=== PATIENT | female | born 1965 | race Caucasian/White ===

== ENCOUNTER 2018-12-10 17:00 | Outpatient (RCR) | payer BC, SELFPAY | END 2019-01-07 15:52 | disposition home or self-care (01) | LOC: PT.CARL 17:00 | PROVIDERS: Visit Provider Nurse Practitioner Family | DX: M54.5 Low back pain (principal); M79.604 Pain in right leg | CPT/HCPCS: 97010; 97014; 97110; 97140; 97163; G0283 ==

== ENCOUNTER → 2021-01-25 08:23 | Outpatient (CLI) | payer BC, SELFPAY ==
--- NOTE | 2021-01-25 08:23 | CT_ITS ---
PROCEDURE: CT LUNG SCREENING CLINICAL INDICATION: lung cancer screening COMPARISON: CR CHEST PA & LAT from 11/16/2020 TECHNIQUE: The exam was performed on a GE Light Speed [address] scanner using 2.90 mGy CTDI. A low dose helical CT CHEST was performed on a multi-detector scanner. All CT scans at the facility use one or more dose reduction, viz: automated exposure control, ma/kV adjustment per patient size (including targeted exams where dose is matched to indication, i.e. head), or iterative reconstruction technique. The LDCT was performed in a facility that meets the criteria for the screening program. Data regarding this exam was submitted to ACR which is an approved registry. The order for this exam indicates that it came as a result of a lung cancer screening counseling shard decision-making visit that included all the elements required of such a visit including smoking cessation. The radiologist interpreting this exam meets the CMS criteria for the LDCT lung cancer screening program. The exam is reported using the Lung-RADS classification scale and reported to the ACR registry. NOTE: This study was performed for the specific purposes of lung cancer screening and is not an alternative to diagnostic chest CT. RADIATION DOSE: CTDI vol(CT dose Index-volume) = 2.90mG DLP (Dose Length Product) = 96.38 mGcm FINDINGS: Scattered mild emphysematous changes with some bibasilar scar versus atelectasis. Some biapical scarring noted. No discrete pulmonary nodules. Heart is not enlarged. No pericardial effusion or thickening. Few small calcified left hilar lymph nodes. Thoracic aorta is normal. Heart is not enlarged. No pericardial effusion or thickening. Airways are patent. Images of the upper abdomen show no discrete abnormality. Mild diffuse degenerative changes of upper and midthoracic spine are noted. No acute bony abnormality. OTHER FINDINGS: No other pertinent findings evident. IMPRESSION: Lung-RADS Category 2 Benign Appearance or Behavior Follow-up: Serial follow-up in 1 year. Scattered mild emphysematous changes with some bibasilar scar versus atelectasis. No discrete pulmonary nodules are noted. Dictated by: Ashvin Christian MD 01/25/2021 09:10 Ashvin Christian MD in [place] 01/25/2021 09:10
[2021-01-25 09:17] LABS: Basophils # 0.1 K/mm3 (0-0.2); Basophils % 1.1 % (0.1-2.0); Eosinophils # 0.1 K/mm3 (0.0-0.4); Eosinophils % 1.7 % (0.1-12.0); Hematocrit 42.8 % (37.0-47.0); Hemoglobin 14.8 g/dL (12.2-16.2); Lymphocytes # 2.2 K/mm3 (0.7-4.5); Lymphocytes % 31.6 % (10-50); Mean Corpuscular HGB Conc 34.4 g/dL (31.8-35.4); Mean Corpuscular Hemoglobin 30.7 pg (27.0-31.2); Mean Corpuscular Volume 89.1 fl (81-99); Mean Platelet Volume 7.6 fl (7.4-10.4); Monocytes # 0.4 K/mm3 (0.1-1.0); Monocytes % 6.1 % (1.7-9.3); Neutrophils # 4.2 K/mm3 (1.8-7.8); Neutrophils % 59.6 % (37.0-80.0); Platelet Count 284 K/mm3 (142-424); Red Blood Count 4.81 M/mm3 (4.20-5.40); Red Cell Distribution Width 13.3 % (11.5-17.5); White Blood Count 7.1 K/mm3 (4.8-10.8)
[2021-01-26 06:45] LABS: Alpha-1-Antitrypsin 141 mg/dL (101-187)
== END ==
PROVIDERS: PCP Nurse Practitioner; Visit Provider Internal Medicine Pulmonary Disease
DX: Z87.891 Personal history of nicotine dependence (principal); Z12.2 Encounter for screening for malignant neoplasm of respiratory organs; J44.9 Chronic obstructive pulmonary disease, unspecified
CPT/HCPCS: 36415; 71271; 82103; 85025

== ENCOUNTER → 2021-02-21 09:43 | Outpatient (CLI) | payer BC, SELFPAY | PROVIDERS: PCP Nurse Practitioner; Visit Provider Internal Medicine Pulmonary Disease | DX: R06.09 Other forms of dyspnea (principal) | CPT/HCPCS: 94060; 94726; 94729 ==

== ENCOUNTER → 2021-05-09 16:37 | Outpatient (CLI) | payer BC, SELFPAY | PROVIDERS: Visit Provider Urology | DX: N39.0 Urinary tract infection, site not specified (principal) | CPT/HCPCS: 87086; 87088; 87186 ==

== ENCOUNTER → 2021-05-16 12:49 | Outpatient (CLI) | payer BC, SELFPAY ==
--- NOTE | 2021-05-16 12:50 | FL_ITS ---
PROCEDURE: FL VOIDING CYSTOURETHROGRAM CLINICAL INDICATION: urinary incontinence COMPARISON: CT CT LUNG SCREENING from 01/25/2021 FINDINGS: Crab Steamer exam shows mild amount of retained colonic feces and bilateral tubal ligation clips. The lower pole of the right kidney appears prominent and may be better evaluated with CT. There are degenerative changes in the lower lumbar spine. Approximately 300 mL of Cystografin was instilled into the urinary of bladder via previously placed Rain catheter. The urinary bladder has an unremarkable appearance. No passive reflux was evident. Patient was unable to void on the table therefore voiding images were not able to be obtained. Postvoid exam show no evidence of renal or ureteral reflux. There is no significant postvoid residual urine. IMPRESSION: Negative voiding cystogram Possible lower pole right renal mass. CT kidneys without and with contrast may provide further evaluation. Dictated by: Kehinde Sawant MD 05/16/2021 16:30 Kehinde Sawant MD in [place] 05/16/2021 16:30
--- NOTE | 2021-05-16 12:50 | US_ITS ---
PROCEDURE: US KIDNEY CLINICAL INDICATION: COMPARISON: No exams were available for comparison FINDINGS: The right kidney is [id number]. No hydronephrosis, cortical thinning, or renal mass or perinephric fluid collection is evident. The left kidney is [id number]. No hydronephrosis, cortical thinning, or renal mass or perinephric fluid collection is evident. There is a small left renal cyst in the upper pole at 1 cm IMPRESSION: Small left upper pole renal cyst otherwise negative renal ultrasound Dictated by: Kehinde Sawant MD 05/16/2021 18:23 Kehinde Sawant MD in [place] 05/16/2021 18:23
== END ==
PROVIDERS: PCP Nurse Practitioner; Visit Provider Urology
DX: R32 Unspecified urinary incontinence (principal); N39.0 Urinary tract infection, site not specified
CPT/HCPCS: 74455; 76770

== ENCOUNTER → 2021-05-30 09:47 | Outpatient (CLI) | payer BC, SELFPAY ==
--- NOTE | 2021-05-30 09:47 | CT_ITS ---
PROCEDURE: CT ABDOMEN PELVIS WO/W CON CLINICAL INDICATION: renal lesion Renal cyst seen on ultrasound COMPARISON: US US KIDNEY from 05/16/2021 TECHNIQUE: IV Contrast: 75ML Isovue 370 Oral Contrast None Axial images obtained with sagittal and coronal reformats. All CT scans at the facility use one or more dose reduction, viz: automated exposure control, ma/kV adjustment per patient size (including targeted exams where dose is matched to indication, i.e. head), or iterative reconstruction technique. FINDINGS: LOWER THORAX: No acute finding ABDOMEN & PELVIS: Liver, spleen, pancreas, bile ducts, gallbladder, kidneys, adrenal glands, ureters in visualized extent appear unremarkable. There is a tiny 9 millimeter cyst in the posterior pelvis near the sacrum likely a very tiny peritoneal inclusion cyst. Bladder and uterus appear unremarkable the patient is status post Essure procedure. Appendix appears unremarkable. Bowel appears unremarkable. Vasculature and soft tissues appear unremarkable. There is mild osseous degenerative change of the lower lumbar facets.. IMPRESSION: No evidence of renal lesions or renal cysts. Dictated by: Emily Quesada MD 06/07/2021 08:16 Emily Quesada MD in [place] 06/07/2021 08:16
== END ==
PROVIDERS: PCP Nurse Practitioner; Visit Provider Urology
DX: N28.9 Disorder of kidney and ureter, unspecified (principal)
CPT/HCPCS: 74178; Q9967

== ENCOUNTER → 2022-01-29 08:30 | Outpatient (CLI) | payer BC, SELFPAY ==
--- NOTE | 2022-01-29 08:30 | CT_ITS ---
FINAL REPORT CLINICAL HISTORY: lung cancer screening- smoker 20 years, unable to lift arms overhead due to torn rotator cuff COMPARISON: January 25, 2021 FINDINGS: Low-Dose Chest CT CTDI vol (mGy): 2.90 DLP (mGy-cm): 108.64 Axial images were obtained from the lung apex to the mid abdomen by computed tomography. Low-dose protocol was utilized. FINDINGS: CHEST: There is no axillary adenopathy. There is no hilar or mediastinal adenopathy. The heart is proper size. There is no pericardial or pleural effusion. Limited images of the upper abdomen are unremarkable. Lung window images demonstrate moderate changes of emphysema and moderate pulmonary scarring. There are several less than 5 mm bilateral pulmonary nodules including a 3 mm left lower lobe nodule seen on image 44, stable. The other smaller nodules are stable. There is a calcified granuloma in the left lower lobe. No new mass or nodule is identified. IMPRESSION: Several less than 5 mm bilateral pulmonary nodules, stable. Lung RADS category 2. Recommend 12 month follow-up low-dose chest CT. Reviewed, Interpreted and Dictated by Dexter Burciaga III, MD Transcribed by Haydee Delarosa Authenticated and [facility]
== END ==
PROVIDERS: PCP Nurse Practitioner; Visit Provider Internal Medicine Pulmonary Disease
DX: Z87.891 Personal history of nicotine dependence (principal); Z12.2 Encounter for screening for malignant neoplasm of respiratory organs
CPT/HCPCS: 71271

== ENCOUNTER → 2023-03-22 08:33 | Outpatient (CLI) | payer BC, SELFPAY ==
--- NOTE | 2023-03-22 08:33 | CT_ITS ---
FINAL REPORT TECHNIQUE: Axial images were obtained from the lung apex to the mid abdomen by computed tomography. This study was performed with techniques to keep radiation doses as low as reasonably achievable (ALARA). Individualized dose reduction techniques using automated exposure control or adjustment of mA and/or kV according to the patient's size were employed. CLINICAL HISTORY: lung cancer screening, former quit less than a month ago. smoked 1 ppd x 20 years COMPARISON: 01/29/2022 FINDINGS: CHEST CT LOW DOSE CTDI vol (mGy): 2.90 DLP (mGy-cm): 105.25 There is no axillary adenopathy. There is no hilar or mediastinal adenopathy. The heart is normal in size. There is no pericardial or pleural effusion. There is mild scarring and mild emphysema. Several less than 5 mm pulmonary nodules are again identified, visually stable. There is a 3 mm left lower lobe nodule well seen on image 47, stable. Limited images of the upper abdomen are unremarkable. IMPRESSION: Stable pulmonary nodules. Lung RADS category 2. Recommend 12 month follow-up low-dose chest CT. Reviewed, Interpreted and Dictated by Dexter Burciaga III, MD Transcribed by Indira Quarles Authenticated and . [facility]
== END ==
PROVIDERS: PCP Nurse Practitioner; Visit Provider Internal Medicine Pulmonary Disease
DX: Z87.891 Personal history of nicotine dependence (principal); Z12.2 Encounter for screening for malignant neoplasm of respiratory organs
CPT/HCPCS: 71271

== ENCOUNTER 2023-08-22 16:39 | Outpatient (CLI) | payer BC, SELFPAY | END 2023-08-22 23:59 | LOC: LAB.DROPOF 16:39 | PROVIDERS: PCP Nurse Practitioner Family; Visit Provider Nurse Practitioner Family | DX: R30.0 Dysuria (principal); B96.1 Klebsiella pneumoniae [K. pneumoniae] as the cause of diseases classified elsewhere | CPT/HCPCS: 87086 ==

== ENCOUNTER 2024-03-27 14:40 | Outpatient (CLI) | payer BC, SELFPAY ==
--- NOTE | 2024-03-27 14:46 | CT_ITS ---
FINAL REPORT TECHNIQUE: Axial CT images of the chest were obtained without contrast. Low-dose protocol was utilized. This study was performed with techniques to keep radiation doses as low as reasonably achievable (ALARA). Individualized dose reduction techniques using automated exposure control or adjustment of mA and/or kV according to the patient's size were employed. CLINICAL HISTORY: lung cancer screening smoker 1ppd, 40 years COMPARISON: 03/22/2023 FINDINGS: CT CHEST WITHOUT, LOW DOSE SCREENING CT Di Vol: 2.90 mGy DLP: 98.21 mGy*cm There is no axillary, mediastinal, or hilar adenopathy. The heart size is normal. There is no pleural or pericardial effusion. There is moderate emphysema and mild scarring. The lung windows show a 3 mm left lower lobe nodule on image 44 which is stable. There is no new mass or nodule. Limited images of the upper abdomen demonstrate no acute findings. IMPRESSION: Stable lung nodule. LR Category 2: 12 month follow-up low-dose chest CT is recommended. Reviewed, Interpreted and Dictated by Dexter Burciaga III, MD Transcribed by Arlyn Howard Authenticated and . [facility]
[2024-03-27] MEDS: ALBUTEROL 0.083% 2.5 MG/3 ML NEB IH (15:13)
--- NOTE | 2024-03-27 15:13 | PC.NURSE ---
Pre and Post Spirometry completed without incident. Albuterol 0.083% given via HHN per written protocol. Pt tolerated tx well.
== END 2024-03-27 23:59 | disposition home or self-care (01) ==
PROVIDERS: Visit Provider Internal Medicine Pulmonary Disease
DX: J44.9 Chronic obstructive pulmonary disease, unspecified (principal); F17.210 Nicotine dependence, cigarettes, uncomplicated
CPT/HCPCS: 71271; 94060; J7613

== ENCOUNTER 2024-05-26 07:42 | Outpatient (CLI) | payer OTHER, BC, SELFPAY ==
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
== END 2024-05-26 23:59 | disposition home or self-care (01) ==
PROVIDERS: PCP Family Medicine; Visit Provider Family Medicine
DX: M54.2 Cervicalgia (principal)
CPT/HCPCS: 72141

== ENCOUNTER 2024-12-31 12:17 | Observation (INO) | payer BC, SELFPAY ==
[2024-12-31] VITALS (10 sets, daily range): BP systolic 111–173; BP diastolic 72–107; PULSE 90–111; RESP 18–26; TEMP 36.4–36.8; O2SAT 92–98; BMI 22.6
--- NOTE | 2024-12-31 12:22 | HMH.EDGENADL ---
Discharge Plan Disposition Chief Complaint: Upper Respiratory Infection Prescriptions Prescriptions: No Action albuterol sulfate 90 mcg/actuation HFA aerosol inhaler 1 inh INHALATION QID PRN (Reason: shortness of breath or wheezing) 90 Days Qty: 8.5 3RF Anoro Ellipta 62.5-25 mcg/actuation blister with device 1 inh INHALATION DAILY 90 Days Qty: 90 3RF Referrals Follow up/Referrals: Scott Reinoso MD [Primary Care Provider] - See instructions Print Language Print Language: Iranian Discharge ED Provider: Khari Judd General Adult HPI <Khari Judd MD - Last Filed: 12/31/24 12:23> General Chief complaint: Upper Respiratory Infection Stated complaint: SOA Time Seen by Provider: 12/31/24 12:22 Related Data Previous Rx's ?Medication ?Instructions ?Recorded albuterol sulfate 90 mcg/actuation 1 inh inhalation QID PRN shortness 01/29/22 aerosol inhaler of breath or wheezing 90 days #8.5 grams umeclidinium 62.5 mcg-vilanterol 1 inh inhalation DAILY 90 days #90 09/30/24 25 mcg/actuation powdr for ea inhalation (Anoro Ellipta) Allergies Allergy/AdvReac Type Severity Reaction Status Date / Time No Known Allergies Allergy Verified 05/12/24 08:29 PFS <Khari Judd MD - Last Filed: 12/31/24 12:23> [facility] Disclaimer: The information contained in this section may have been updated after the patient was seen, as this information can be updated by other users. Medical History Multiple lung nodules on CT Encounter for screening for malignant neoplasm of lung Stopped smoking with greater than 30 pack year history COPD mixed type Surgical History History of neck surgery History of surgery on upper extremity History of tubal ligation Family History Other COPD (chronic obstructive pulmonary disease) Heart attack Hypertension Social History Smoking Status: Current every day smoker tobacco type: cigarettes packs per day: 1 smoking status stop date: 02/03/2023 second hand exposure: No alcohol intake: never substance use type: denies use current occupational status: employed Travel in the last 8 weeks?: None household members: significant other housing: house marital status: single Have you lived/traveled outside [place] in past 30 days?: No Contact w/someone who lives/traveled outside US past 30 days?: No Exposure to someone with infectious disease in past 14 days?: No Do you have a fever (greater than 100.4 F or 38 C)?: No Have you tested positive for COVID-19?: No Exposed to someone with COVID-19 in past 14 days?: No Do you have a sore throat?: No Do you have a cough?: No Do you have any weakness?: No Do you have any diarrhea?: No Are you experiencing any unusual bleeding?: No Do you have any muscle aches/pain?: No Do you have any abdominal pain?: No Are you experiencing loss of taste or smell?: No Other Medical History Have you received the Pneumonia Vaccine: No Medical Decision Making <Khari Judd MD - Last Filed: 12/31/24 12:23> Medical Records Screening: Per USPSTF and CDC recommendations, given the prevalence of disease in our region, it is our hospital?s policy to screen for HIV and viral Hepatitis for all patients aged 18 and over and those with ongoing risk factors. Vital Signs: 12/31/24 12:24 12/31/24 12:27 12/31/24 13:01 Temperature 97.6 F Temperature Source Oral Pulse Rate 107 H 97 H Pulse Rate [Right Brachial] 111 H Respiratory Rate 24 Blood Pressure 159/100 H 132/89 Blood Pressure [Right Arm] 173/107 H Blood Pressure Mean [Right Arm] 129 Blood Pressure Source [Right Arm] Automatic Cuff Blood Pressure Position [Right Arm] Supine 02 Sat by Pulse Oximetry 94 L 92 L 92 L Oxygen Delivery Method Room Air Room Air Room Air Oxygen Flow Rate (LPM) 12/31/24 14:00 12/31/24 15:00 Temperature Temperature Source Pulse Rate 90 90 Pulse Rate [Right Brachial] Respiratory Rate Blood Pressure 111/72 127/73 Blood Pressure [Right Arm] Blood Pressure Mean [Right Arm] Blood Pressure Source [Right Arm] Blood Pressure Position [Right Arm] 02 Sat by Pulse Oximetry 95 94 L Oxygen Delivery Method Room Air Room Air Oxygen Flow Rate (LPM) 2 Lab Data Lab Results 12/31/24 12:35: WBC 7.7, RBC 5.10, Hgb 15.4, Hct 44.9, MCV 88.0, MCH 30.2, MCHC 34.3, RDW 12.7, Plt Count 200, MPV 9.9, Neut % (Auto) 72.1, Lymph % (Auto) 20.8, [place] % (Auto) 6.1, Eos % (Auto) 0.3, Baso % (Auto) 0.4, Neut # (Auto) 5.5, Lymph # (Auto) 1.6, [place] # (Auto) 0.5, Eos # (Auto) 0.0, Baso # (Auto) 0.0, D-Dimer 0.71 H, Sodium 133 L, Potassium 3.9, Chloride 97 L, Carbon Dioxide 29, Anion Gap 10.9, BUN 14, Creatinine 0.80, Estimated Creat Clear 65, Estimated GFR 74, Est GFR ( Amer) 89, Glucose 145 H, Calcium 8.9, Magnesium 2.0, Total Bilirubin 0.7, AST 40 H, ALT 22, Alkaline Phosphatase 78, Troponin I < 0.01, Total Protein 7.7, Albumin 4.7, Globulin 3.0, Albumin/Globulin Ratio 1.6 12/31/24 14:36: VBG pH 7.35, VBG pCO2 45.0, VBG pO2 40.2 H, VBG HCO3 24.4, VBG Total CO2 25.8, VBG O2 Saturation 72.6 H, VBG Base Excess -1.2, VBG Lactic Acid 1.6 12/31/24 12:35 12/31/24 12:35 Orders (Tests/Meds): ED MEDICATIONS Generic Name Dose Route Start Last Admin Trade Name Freq PRN Reason Stop Dose Admin Acetaminophen 650 mg 12/31/24 15:18 Acetaminophen 325mg Tab PO 01/30/25 15:17 Q4HP PRN Fever or Mild Pain (1-3) Albuterol/Ipratropium 3 ml 12/31/24 18:00 Ipratropium/Albuterol 3 Ml [facility] 01/30/25 17:59 Q6RT [facility] Budesonide 0.5 mg 12/31/24 18:00 Budesonide 0.5mg/2ml [facility] 01/30/25 17:59 BIDRT LISSY Enoxaparin Sodium 40 mg 01/01/25 09:00 Enoxaparin 40mg/0.4ml Syringe SUBCUT 01/31/25 08:59 DAILY [facility] Ondansetron HCl 4 mg 12/31/24 15:18 Ondansetron 4mg/2ml Vial IV 01/30/25 15:17 Q8HP PRN Nausea Prednisone 40 mg 01/01/25 09:00 Prednisone 20mg Tab PO 01/31/25 08:59 DAILY LISSY Discontinued Medications Generic Name Dose Route Start Last Admin Trade Name Freq PRN Reason Stop Dose Admin Albuterol/Ipratropium 3 ml 12/31/24 12:27 12/31/24 12:36 Ipratropium/Albuterol 3 Ml [facility] 12/31/24 12:28 3 ml ONCE ONE Administration Albuterol/Ipratropium 9 ml 12/31/24 13:08 12/31/24 13:13 Ipratropium/Albuterol 3 Ml [facility] 12/31/24 13:09 9 ml ONCE ONE Administration Lactated Ringer's 500 mls @ 999 mls/hr 12/31/24 12:27 12/31/24 12:36 Lactated Ringer's 1000 Ml Bag IV 12/31/24 12:57 999 mls/hr .Q31M ONE Administration Magnesium Sulfate 2 gm in 50 mls @ 50 mls/hr 12/31/24 13:09 12/31/24 13:14 Magnesium Sulfate 2gm/50ml Premix IV 12/31/24 14:08 50 mls/hr ONCE ONE Administration Methylprednisolone Sodium Succinate 125 mg 12/31/24 12:27 12/31/24 12:35 Methylprednisolone Sod Succ 125mg Vial IV 12/31/24 12:28 125 mg ONCE ONE Administration ORDERS Category Date Time Status CXR --portable [XR chest portable] Stat Exams 12/31/24 12:27 Completed CBC w/Auto Diff [Complete Blood Count Auto Diff] Stat Lab 12/31/24 12:35 Completed CMP [Comprehensive Metabolic Panel] Stat Lab 12/31/24 12:35 Completed Complete Blood Count Auto Diff [facility] Lab 01/01/25 06:00 Ordered Complete Blood Count Auto Diff [facility] Lab 01/02/25 06:00 Ordered Complete Blood Count Auto Diff [facility] Lab 01/03/25 06:00 Ordered Complete Blood Count Auto Diff [facility] Lab 01/04/25 06:00 Ordered Complete Blood Count Auto Diff [facility] Lab 01/05/25 06:00 Ordered Comprehensive Metabolic Panel [facility] Lab 01/01/25 06:00 Ordered Comprehensive Metabolic Panel [facility] Lab 01/02/25 06:00 Ordered Comprehensive Metabolic Panel [facility] Lab 01/03/25 06:00 Ordered Comprehensive Metabolic Panel [facility] Lab 01/04/25 06:00 Ordered Comprehensive Metabolic Panel [facility] Lab 01/05/25 06:00 Ordered D-Dimer Stat Lab 12/31/24 12:35 Completed Magnesium [facility] Lab 01/01/25 06:00 Ordered Magnesium [facility] Lab 01/02/25 06:00 Ordered Magnesium [facility] Lab 01/03/25 06:00 Ordered Magnesium [facility] Lab 01/04/25 06:00 Ordered Magnesium [facility] Lab 01/05/25 06:00 Ordered Magnesium Stat Lab 12/31/24 12:35 Completed Trop I [Troponin I] Stat Lab 12/31/24 12:35 Completed Troponin I Q3H Lab 12/31/24 18:30 Ordered VBG [Venous Blood Gas] Stat RT 12/31/24 14:36 Completed <Meenu Pereira, PRACTICE ARCHITECT - Last Filed: 12/31/24 15:30> [place] Inquiry Pt receiving controlled substance: No Vital Signs: 12/31/24 12:24 12/31/24 12:27 12/31/24 13:01 Temperature 97.6 F Temperature Source Oral Pulse Rate 107 H 97 H Pulse Rate [Right Brachial] 111 H Respiratory Rate 24 Blood Pressure 159/100 H 132/89 Blood Pressure [Right Arm] 173/107 H Blood Pressure Mean [Right Arm] 129 Blood Pressure Source [Right Arm] Automatic Cuff Blood Pressure Position [Right Arm] Supine 02 Sat by Pulse Oximetry 94 L 92 L 92 L Oxygen Delivery Method Room Air Room Air Room Air Oxygen Flow Rate (LPM) 12/31/24 14:00 12/31/24 15:00 Temperature Temperature Source Pulse Rate 90 90 Pulse Rate [Right Brachial] Respiratory Rate Blood Pressure 111/72 127/73 Blood Pressure [Right Arm] Blood Pressure Mean [Right Arm] Blood Pressure Source [Right Arm] Blood Pressure Position [Right Arm] 02 Sat by Pulse Oximetry 95 94 L Oxygen Delivery Method Room Air Room Air Oxygen Flow Rate (LPM) 2 Lab Data Lab Results 12/31/24 12:35: WBC 7.7, RBC 5.10, Hgb 15.4, Hct 44.9, MCV 88.0, MCH 30.2, MCHC 34.3, RDW 12.7, Plt Count 200, MPV 9.9, Neut % (Auto) 72.1, Lymph % (Auto) 20.8, [place] % (Auto) 6.1, Eos % (Auto) 0.3, Baso % (Auto) 0.4, Neut # (Auto) 5.5, Lymph # (Auto) 1.6, [place] # (Auto) 0.5, Eos # (Auto) 0.0, Baso # (Auto) 0.0, D-Dimer 0.71 H, Sodium 133 L, Potassium 3.9, Chloride 97 L, Carbon Dioxide 29, Anion Gap 10.9, BUN 14, Creatinine 0.80, Estimated Creat Clear 65, Estimated GFR 74, Est GFR ( Amer) 89, Glucose 145 H, Calcium 8.9, Magnesium 2.0, Total Bilirubin 0.7, AST 40 H, ALT 22, Alkaline Phosphatase 78, Troponin I < 0.01, Total Protein 7.7, Albumin 4.7, Globulin 3.0, Albumin/Globulin Ratio 1.6 12/31/24 14:36: VBG pH 7.35, VBG pCO2 45.0, VBG pO2 40.2 H, VBG HCO3 24.4, VBG Total CO2 25.8, VBG O2 Saturation 72.6 H, VBG Base Excess -1.2, VBG Lactic Acid 1.6 Orders (Tests/Meds): ED MEDICATIONS Generic Name Dose Route Start Last Admin Trade Name Freq PRN Reason Stop Dose Admin Acetaminophen 650 mg 12/31/24 15:18 Acetaminophen 325mg Tab PO 01/30/25 15:17 Q4HP PRN Fever or Mild Pain (1-3) Albuterol/Ipratropium 3 ml 12/31/24 18:00 Ipratropium/Albuterol 3 Ml [facility] 01/30/25 17:59 Q6RT [facility] Budesonide 0.5 mg 12/31/24 18:00 Budesonide 0.5mg/2ml [facility] 01/30/25 17:59 BIDRT [facility] Enoxaparin Sodium 40 mg 01/01/25 09:00 Enoxaparin 40mg/0.4ml Syringe SUBCUT 01/31/25 08:59 DAILY LISSY Ondansetron HCl 4 mg 12/31/24 15:18 Ondansetron 4mg/2ml Vial IV 01/30/25 15:17 Q8HP PRN Nausea Prednisone 40 mg 01/01/25 09:00 Prednisone 20mg Tab PO 01/31/25 08:59 DAILY LISSY Discontinued Medications Generic Name Dose Route Start Last Admin Trade Name Freq PRN Reason Stop Dose Admin Albuterol/Ipratropium 3 ml 12/31/24 12:27 12/31/24 12:36 Ipratropium/Albuterol 3 Ml Neb 12/31/24 12:28 3 ml ONCE ONE Administration Albuterol/Ipratropium 9 ml 12/31/24 13:08 12/31/24 13:13 Ipratropium/Albuterol 3 Ml Neb 12/31/24 13:09 9 ml ONCE ONE Administration Lactated Ringer's 500 mls @ 999 mls/hr 12/31/24 12:27 12/31/24 12:36 Lactated Ringer's 1000 Ml Bag IV 12/31/24 12:57 999 mls/hr .Q31M ONE Administration Magnesium Sulfate 2 gm in 50 mls @ 50 mls/hr 12/31/24 13:09 12/31/24 13:14 Magnesium Sulfate 2gm/50ml Premix IV 12/31/24 14:08 50 mls/hr ONCE ONE Administration Methylprednisolone Sodium Succinate 125 mg 12/31/24 12:27 12/31/24 12:35 Methylprednisolone Sod Succ 125mg Vial IV 12/31/24 12:28 125 mg ONCE ONE Administration ORDERS Category Date Time Status CXR --portable [XR chest portable] Stat Exams 12/31/24 12:27 Completed CBC w/Auto Diff [Complete Blood Count Auto Diff] Stat Lab 12/31/24 12:35 Completed CMP [Comprehensive Metabolic Panel] Stat Lab 12/31/24 12:35 Completed Complete Blood Count Auto Diff [facility] Lab 01/01/25 06:00 Ordered Complete Blood Count Auto Diff [facility] Lab 01/02/25 06:00 Ordered Complete Blood Count Auto Diff [facility] Lab 01/03/25 06:00 Ordered Complete Blood Count Auto Diff [facility] Lab 01/04/25 06:00 Ordered Complete Blood Count Auto Diff [facility] Lab 01/05/25 06:00 Ordered Comprehensive Metabolic Panel [facility] Lab 01/01/25 06:00 Ordered Comprehensive Metabolic Panel [facility] Lab 01/02/25 06:00 Ordered Comprehensive Metabolic Panel [facility] Lab 01/03/25 06:00 Ordered Comprehensive Metabolic Panel [facility] Lab 01/04/25 06:00 Ordered Comprehensive Metabolic Panel [facility] Lab 01/05/25 06:00 Ordered D-Dimer Stat Lab 12/31/24 12:35 Completed Magnesium [facility] Lab 01/01/25 06:00 Ordered Magnesium [facility] Lab 01/02/25 06:00 Ordered Magnesium [facility] Lab 01/03/25 06:00 Ordered Magnesium [facility] Lab 01/04/25 06:00 Ordered Magnesium [facility] Lab 01/05/25 06:00 Ordered Magnesium Stat Lab 12/31/24 12:35 Completed Trop I [Troponin I] Stat Lab 12/31/24 12:35 Completed Troponin I Q3H Lab 12/31/24 18:30 Ordered VBG [Venous Blood Gas] Stat RT 12/31/24 14:36 Completed Medical Decision Narrative: In summary, patient is a 59-year-old female PMHx COPD,
--- NOTE | 2024-12-31 12:27 | XR_ITS ---
FINAL REPORT CLINICAL HISTORY: Shortness of breath Fever, congested, cough, runny nose, wheezing, shortness of breath, and increased fatigue COMPARISON: None FINDINGS: CHEST 1 VIEW No acute pulmonary opacity is present. There is no evidence of effusion or pneumothorax. Mediastinum is unremarkable. Heart size is normal. IMPRESSION: No acute abnormality. Reviewed, Interpreted and Dictated by Aleyda Ramos MD Transcribed by Gloria Leigh Authenticated and [facility]
--- OUTSIDE RECORDS SUMMARY | 2024-12-31 12:32 | XMS_ITS | Continuity of Care Document ---
Author Organization [facility] S[facility] Main [place] Address [address] [place] [id number] Assessment No assessment recorded. Plan of Treatment Reminders Order Date Submit Date Provider Last Modified By Organization Details Last Modified Time Details Appointments None recorde d. Lab None recorde d. Referral None recorde d. Procedures None recorde d. Surgeries None recorde d. Imaging None recorde d. Medication Orders mupiroc in 2 % topical ointmen t [address] [facility], [facility] [place], [address], 12:16:32 Patient TargetsNo targets recorded. Patient InstructionsNo instructions recorded. Reason for Referral None Reported. Procedures Surgical History Date Name Laterality Status Provider Name and Address Organization Details Recorded Time 12/05/19 SURESH - Intralesional Injection completed Jacquelyn Tijerina [facility] 12/04/2024 15:15:17 Imaging Results None recorded. Procedure Notes None recorded. Medical Equipment None Reported. Allergies No known drug allergies Medications Name Sig Start Date Stop Date Status Note LastModified by Organization Details LastModified Time doxycycline hyclate 100 mg capsule Take 1 capsule twice a day by oral route for 14 days. 025 active Not Available Not Available Not Avai lable mupirocin 2 % topical ointment Apply to the AA TID x 10 days 025 active Not Available Not Available Not Avai lable meloxicam active Not Available Not Emily ilable Not Available Vitals None Recorded Social History Question Answer Notes LastModified by Organizat ion Details LastModified Time Tobacco Smoking Status Current Every Day Smoker Jacquelyn Tijerina [facility] 12/04/2024 14:44:27 What Is Your Level Of Caffeine Consumption? None Information not available 12/04/2024 What Was The Date Of Your Most Recent Tobacco Screening? 12/04/2024 Information not available 12/04/2024 Has Tobacco Cessation Counseling Been Provided? No Information not available 12/04/2024 Sex: Unknown Functional Status Question Answer Note LastModified by Organizat ion Details LastModified Time Do you use any illicit or recreational drugs? No Information not available 12/04/2024 Do you or have you ever used any other forms of tobacco or nicotine? No Information not available 12/04/2024 What is your level of alcohol consumption? None Information not available 12/04/2024 Mental Status None recorded. Family History Nothing Reported. Medical History No medical history recorded. Gynecological HistoryNo gynecological history recorded. Obstetrics History GPAL:G 0 P 0 0 0 0 Past Encounters Encounter ID Performer Location Encounter Start Date Encounter Closed Date Diagnosis/Indication Diagnosis SNOMED-CT Code Diagnosis ICD10 Code Diagnosis Note [id number] MORTEZA BURNS PA-C [place] [id number] 12/04/2024 14:26:30 12/04/2024 15:49:51 Epidermoid cyst of skin 888923644 L72.0 L53.0 Cysts are dilated follicles with keratinous material within. Can become inflamed if they rupture. Pt notes a cyst there for a long period of time and recently became inflammed Will inject with kenalog 10Will send doxycyclin e 100mg capsules Doxycyclin e is an oral abx used to treat acne due to anti-infla mmatory properties .Abx resistance risk discussed. SE include GI upset, sun sensitivit y, etc.Do not take w/ Mg, Ca, Fe+. Do not use if or nursing.Re c taking probiotic. [id number] SHAMIR Lomas APRN [place] [id number] 12/29/2024 11:17:05 12/29/2024 12:32:10 Epidermoid cyst of skin 598537088 L72.0 Patient reports the cyst only continued to get bigger following last appt.Did finally rupture on 12/25, still drainingIn flammation appears to be resolving. Denies pain but confirms itch from reaction to adhesive bandageRec ommend switching to non-adhesi ve bandages Injected with K10 on 12/04/2024 Completed Doxy 100mg BID x 14 days Plan to send Mupirocin ointment to use TID x 10 days Cysts are dilated follicles with keratinous material within. Can become inflamed if they rupture. Risks, benefits, side effects, alternativ es and options of excision were discussed with patient and the patient voiced understand ing. Will consider excision in the future if this continues to become inflamed and bothersome . Health Concerns Section Related Observation LastModified by Organization Detai ls LastModified Time None Recorded Concern Status LastModified by Organization Details LastModified Time None Recorded Payers Encounter Date Sequence Insurance Name Policy Number Policy Alanis Covered Member ID Alanis Member ID Guarantor Name 12/29/2024 1 [place] [id number] Nay Duenas [id number] Nay Duenas Notes Date Note Type Note Provider Name and Address Organization Details Recorded Time 12/29/2024 text/html Cyst Location: Neck Duration: 1mo f/u Previous tx: Kenalog 10 + doxy Reports: cyst popped, basin tender SHAMIR DICKEY, TECHNICAL ACCOUNT MANAGER [address] [place], [address], [place] [facility] 12/30/2024 17:04:15 OBGyn Episode No OBEpisode recorded.
--- OUTSIDE RECORDS SUMMARY | 2024-12-31 12:32 | XMS_ITS | Continuity of Care Document ---
Author Organization [facility] [place] Address [address] [place] [phone] Assessment No assessment recorded. Plan of Treatment Reminders Order Date Submit Date Provider Last Modified By Organization Details Last Modified Time Details Appointments None recorded. Lab None recorded. Referral None recorded. Procedures None recorded. Surgeries None recorded. Imaging None recorded. Medication Orders doxycycline hyclate 100 mg capsule [address] [facility] [address] [place], [address], 12:16:35 Patient TargetsNo targets recorded. Patient InstructionsNo instructions recorded. Reason for Referral None Reported. Procedures Surgical History Date Name Laterality Status Provider Name and Address Organization Details Recorded Time 12/05/19 SURESH - Intralesional Injection completed Jacquelyn Tijerina [facility] 12/04/2024 15:15:17 Imaging Results None recorded. Procedure [...] Smoking Status Current Every Day Smoker Jacquelyn james [facility] 12/04/2024 14:44:27 What Is Your Level Of [...] SNOMED-CT Code Diagnosis ICD10 Code Diagnosis Note [id number] MORTEZA BURNS PA-C [address] [id number] 12/04/2024 14:26:30 12/04/2024 15:49:51 Epidermoid cyst of skin [id number] L72.0 L53.0 Cysts are dilated follicles with [...] use if or nursing.Re c taking probiotic. Health Concerns Section Related Observation LastModified by Organization Detai ls LastModified Time None Recorded Concern Status LastModified by Organization Details LastModified Time None Recorded Payers Encounter Date Sequence Insurance Name Policy Number Policy Alanis Covered Member ID Alanis Member ID Guarantor Name 12/04/2024 1 [place] [id number] 3 Nay Duenas [id number] Nay Duenas Notes Date Note Type Note Provider Name and Address Organization Details Recorded Time 12/04/2024 text/html Specific spot t o check Location:neckGe neral duration:1 yearPredominant symptom:painfulPrior treatment(s):noneHist ory of evolution:it is growing MORTEZA BURNS PA-C [address] [place], [address], [facility] 12/05/2024 17:48:25 OBGyn Episode No OBEpisode recorded.
--- OUTSIDE RECORDS SUMMARY | 2024-12-31 12:32 | XMS_ITS | Data Portability ---
Author Organization [facility] [place] Main [employer] [place] Address [address] [place] [address] [address] [place] [address] Assessment No assessment recorded. Plan of Treatment Reminders Order Date Submit Date Provider Last Modified By Organization Details Last Modified Time Details Appointments None recorde d. Lab None recorde d. Referral None recorde d. Procedures None recorde d. Surgeries None recorde d. Imaging None recorde d. Medication Orders mupiroc in 2 % topical ointmen t 2024 [facility] [facility], [facility] [place], [address], 5 12:16:32 doxycyc line hyclate 100 mg capsule [email or web address] [facility], [address] [place] [address], [address], 5 12:16:35 Patient TargetsNo targets recorded. Patient InstructionsNo instructions recorded. Reason for Referral None Reported. Procedures Surgical History Date Name Laterality Status Provider Name and Address Organization Details Recorded Time 12/05/19 25 DAK - Intralesional Injection completed Jacquelyn Tijerina [facility] 12/04/2024 15:15:17 Imaging Results None recorded. Procedure Notes None recorded. Medical Equipment None Reported. Allergies No known drug allergies Medications Name Sig Start Date Stop Date Status Note LastModified by Organization Details LastModified Time doxycycline hyclate 100 mg capsule Take 1 capsule twice a day by oral route for 14 days. active Not Available Not Available Not Avai lable mupirocin 2 % topical ointment Apply to the AA TID x 10 days 025 active Not Available Not Available Not Avai lable meloxicam active Not Available Not Emily ilable Not Available Vitals None Recorded Social History Question Answer Notes LastModified by Organizat ion Details LastModified Time Tobacco Smoking Status Current Every Day Smoker Jacquelyn Tijerina [facility] 12/04/2024 14:44:27 What Is Your Level Of [...] SNOMED-CT Code Diagnosis ICD10 Code Diagnosis Note [id number] MORTEZA BURNS PA-C [address] [place] [address] 12/04/2024 14:26:30 12/04/2024 15:49:51 Epidermoid cyst of skin [id number] L72.0 L53.0 Cysts are dilated follicles with [...] use if or nursing.Re c taking probiotic. [id number] SHAMIR MARTINES R, CHANGE OVER DAK PARKER [address] [place] [address] 12/29/2024 11:17:05 12/29/2024 12:32:10 Epidermoid cyst of skin [id number] L72.0 Patient reports the cyst only continued [...] by Organization Details LastModified Time None Recorded Advance Directives Directive None Recorded Payers Insurance Date Sequence Insurance Name Policy Number Policy Alanis Covered Member ID Alanis Member ID Guarantor Name 12/26/2024 1 [place] [id number] 3 Nay Duenas [id number] Nay Duenas Notes Date Note Type Note Provider Name and Address Organization Details Recorded Time 12/04/2024 text/html Specific spot t o check Location:neckGe neral duration:1 yearPredominant symptom:painfulPrior treatment(s):noneHist ory of evolution:it is growing MORTEZA BURNS PA-C [address] [place], [address], [facility] 12/05/2024 17:48:25 12/29/2024 text/html Cyst Location: Neck Duration: 1mo f/u Previous tx: Kenalog 10 + doxy Reports: cyst popped, lock tender SHAMIR DICKEY, CHANGE OVER [address] [place], [address], [facility] 12/30/2024 17:04:15 OBGyn Episode No OBEpisode recorded.
[2024-12-31] MEDS: METHYLPREDNISOLONE SOD SUCC 125MG VIAL 125 MG IV (12:35)
[2024-12-31] MEDS: LACTATED RINGERS 1000ML 500 ML 999 ML IV (12:36)
[2024-12-31] MEDS: IPRATROPIUM/ALBUTEROL 3 ML NEB IH ×3 (12:36→23:21)
[2024-12-31 12:41] LABS: Basophils % 0.4 % (0.1-2.0); Eosinophils % 0.3 % (0.1-12.0); Hematocrit 44.9 % (37.0-47.0); Hemoglobin 15.4 g/dL (12.2-16.2); Immature Granulocytes # 0.02 10^3uL; Immature Granulocytes % 0.3 %; Lymphocytes # 1.6 K/mm3 (0.7-4.5); Lymphocytes % 20.8 % (10-50); Mean Corpuscular HGB Conc 34.3 g/dL (31.8-35.4); Mean Corpuscular Hemoglobin 30.2 pg (27.0-31.2); Mean Platelet Volume 9.9 fl (7.4-10.4); Monocytes # 0.5 K/mm3 (0.1-1.0); Monocytes % 6.1 % (1.7-9.3); Neutrophils # 5.5 K/mm3 (1.8-7.8); Neutrophils % 72.1 % (37.0-80.0); Nucleated Red Blood Cells # 0 10^3/uL; Nucleated Red Blood Cells % 0 %; Platelet Count 200 K/mm3 (142-424); Red Cell Distribution Width 12.7 % (11.5-17.5); Red Cell Distribution Width-SD 41.1 fL; White Blood Count 7.7 K/mm3 (4.8-10.8)
--- NOTE | 2024-12-31 12:41 | HMH.EDGENADL ---
Discharge Plan Disposition Chief Complaint: Upper Respiratory Infection Discharge ED Provider: Khari Judd General Adult HPI <Meenu Pereira APRN - Last Filed: 12/31/24 15:33> General Chief complaint: Upper Respiratory Infection Stated complaint: SOA Time Seen by Provider: 12/31/24 12:22 Mode of Arrival: Ambulatory Source of Information: Patient Description of Symptoms (Recalled from ER Triage Doc. by RN): Patient presents to ED with upper resp. symptoms. Patient reports fever, congested, cough, runny nose, wheezing, SOA, and increased fatigue. Patient reports this has been going on since saturday. Patient called her PCP and told them she felt like it was setting into pneumonia. PCP sent her to ED. History of Present Illness HPI narrative: Patient is a 59-year-old female PMHx COPD, current tobacco use (1pk day / 45 years), history of lung nodules, who presents to the ED for complaints of shortness of breath and cough. Patient states her symptoms started this past Saturday and have progressively worsened. Related Data Previous Rx's ?Medication ?Instructions ?Recorded albuterol sulfate 90 mcg/actuation 1 inh inhalation QID PRN shortness 01/29/22 aerosol inhaler of breath or wheezing 90 days #8.5 grams umeclidinium 62.5 mcg-vilanterol 1 inh inhalation DAILY 90 days #90 09/30/24 25 mcg/actuation powdr for ea inhalation (Anoro Ellipta) Allergies Allergy/AdvReac Type Severity Reaction Status Date / Time No Known Allergies Allergy Verified 05/12/24 08:29 PFS <Meenu Pereira APRN - Last Filed: 12/31/24 15:33> FORMERLY [facility], 1928–1983 Disclaimer: The information contained in this section may have been updated after the patient was seen, as this information can be updated by other users. Medical History Multiple lung nodules on CT Encounter for screening for malignant neoplasm of lung Stopped smoking with greater than 30 pack year history COPD mixed type Surgical History History of neck surgery History of surgery on upper extremity History of tubal ligation Family History Other COPD (chronic obstructive pulmonary disease) Heart attack Hypertension Social History Smoking Status: Current every day smoker tobacco type: cigarettes packs per day: 1 smoking status stop date: 02/03/2023 second hand exposure: No alcohol intake: never substance use type: denies use current occupational status: employed Travel in the last 8 weeks?: None household members: significant other housing: house marital status: single Have you lived/traveled outside [place] in past 30 days?: No Contact w/someone who lives/traveled outside US past 30 days?: No Exposure to someone with infectious disease in past 14 days?: No Do you have a fever (greater than 100.4 F or 38 C)?: No Have you tested positive for COVID-19?: No Exposed to someone with COVID-19 in past 14 days?: No Do you have a sore throat?: No Do you have a cough?: No Do you have any weakness?: No Do you have any diarrhea?: No Are you experiencing any unusual bleeding?: No Do you have any muscle aches/pain?: No Do you have any abdominal pain?: No Are you experiencing loss of taste or smell?: No Other Medical History Have you received the Pneumonia Vaccine: No <Meenu Pereira APRN - Last Filed: 12/31/24 15:33> ROS Obtained: Yes Systems reviewed as appropriate & no additional complaints except as documented Physical Exam <Meenu Pereira APRN - Last Filed: 12/31/24 15:33> General General appearance: alert Head Head exam: atraumatic and normocephalic Eye Eye exam: Present normal appearance and PERRL ENT ENT exam: Present normal exam Neck Neck exam: Present normal inspection Chest Chest inspection: Present normal inspection and symmetric chest wall rise; Absent tenderness Respiratory Respiratory exam: Present respiratory distress (Mild) and wheezes (expiratory ) Cardiovascular Cardiovascular exam: Present tachycardia Abdominal Exam Abdominal exam: Present soft and normal bowel sounds; Absent tenderness Extremities Exam Extremities exam: Present normal inspection and full ROM Back Exam Back exam: Present normal inspection and full ROM Neurological Exam Neurological exam: Present alert and oriented X3 Psychiatric Psychiatric exam: Present normal affect and normal mood Skin Skin exam: Present warm and dry Medical Decision Making <Meenu Pereira APRN - Last Filed: 12/31/24 15:33> Medical Records Screening: Per USPSTF and CDC recommendations, given the prevalence of disease in our region, it is our hospital?s policy to screen for HIV and viral Hepatitis for all patients aged 18 and over and those with ongoing risk factors. [place] Inquiry Pt receiving controlled substance: No Vital Signs: 12/31/24 12:24 12/31/24 12:27 12/31/24 13:01 Temperature 97.6 F Temperature Source Oral Pulse Rate 107 H 97 H Pulse Rate [Right Brachial] 111 H Respiratory Rate 24 Blood Pressure 159/100 H 132/89 Blood Pressure [Right Arm] 173/107 H Blood Pressure Mean [Right Arm] 129 Blood Pressure Source [Right Arm] Automatic Cuff Blood Pressure Position [Right Arm] Supine 02 Sat by Pulse Oximetry 94 L 92 L 92 L Oxygen Delivery Method Room Air Room Air Room Air Oxygen Flow Rate (LPM) 12/31/24 14:00 12/31/24 15:00 Temperature Temperature Source Pulse Rate 90 90 Pulse Rate [Right Brachial] Respiratory Rate Blood Pressure 111/72 127/73 Blood Pressure [Right Arm] Blood Pressure Mean [Right Arm] Blood Pressure Source [Right Arm] Blood Pressure Position [Right Arm] 02 Sat by Pulse Oximetry 95 94 L Oxygen Delivery Method Room Air Room Air Oxygen Flow Rate (LPM) 2 Lab Data Lab Results 12/31/24 12:35: WBC 7.7, RBC 5.10, Hgb 15.4, Hct 44.9, MCV 88.0, MCH 30.2, MCHC 34.3, RDW 12.7, Plt Count 200, MPV 9.9, Neut % (Auto) 72.1, Lymph % (Auto) 20.8, Jenkins % (Auto) 6.1, Eos % (Auto) 0.3, Baso % (Auto) 0.4, Neut # (Auto) 5.5, Lymph # (Auto) 1.6, Jenkins # (Auto) 0.5, Eos # (Auto) 0.0, Baso # (Auto) 0.0, D-Dimer 0.71 H, Sodium 133 L, Potassium 3.9, Chloride 97 L, Carbon Dioxide 29, Anion Gap 10.9, BUN 14, Creatinine 0.80, Estimated Creat Clear 65, Estimated GFR 74, Est GFR ( Amer) 89, Glucose 145 H, Calcium 8.9, Magnesium 2.0, Total Bilirubin 0.7, AST 40 H, ALT 22, Alkaline Phosphatase 78, Troponin I < 0.01, Total Protein 7.7, Albumin 4.7, Globulin 3.0, Albumin/Globulin Ratio 1.6 12/31/24 14:36: VBG pH 7.35, VBG pCO2 45.0, VBG pO2 40.2 H, VBG HCO3 24.4, VBG Total CO2 25.8, VBG O2 Saturation 72.6 H, VBG Base Excess -1.2, VBG Lactic Acid 1.6 12/31/24 12:35 12/31/24 12:35 Orders (Tests/Meds): ED MEDICATIONS Generic Name Dose Route Start Last Admin Trade Name Freq PRN Reason Stop Dose Admin Acetaminophen 650 mg 12/31/24 15:18 Acetaminophen 325mg Tab PO 01/30/25 15:17 Q4HP PRN Fever or Mild Pain (1-3) Albuterol/Ipratropium 3 ml 12/31/24 18:00 Ipratropium/Albuterol [address] [facility] 01/30/25 17:59 Q6RT [facility] Budesonide 0.5 mg 12/31/24 18:00 Budesonide 0.5mg/2ml [facility] 01/30/25 17:59 BIDRT [facility] Enoxaparin Sodium 40 mg 01/01/25 09:00 Enoxaparin 40mg/0.4ml Syringe SUBCUT 01/31/25 08:59 DAILY [facility] Ondansetron HCl 4 mg 12/31/24 15:18 Ondansetron 4mg/2ml Vial IV 01/30/25 15:17 Q8HP PRN Nausea Prednisone 40 mg 01/01/25 09:00 Prednisone 20mg Tab PO 01/31/25 08:59 DAILY [facility] Discontinued Medications Generic Name Dose Route Start Last Admin Trade Name Freq PRN Reason Stop Dose Admin Albuterol/Ipratropium 3 ml 12/31/24 12:27 12/31/24 12:36 Ipratropium/Albuterol [address] [facility] 12/31/24 12:28 3 ml ONCE ONE Administration Albuterol/Ipratropium 9 ml 12/31/24 13:08 12/31/24 13:13 Ipratropium/Albuterol 3 Ml [facility] 12/31/24 13:09 9 ml ONCE ONE Administration Lactated Ringer's 500 mls @ 999 mls/hr 12/31/24 12:27 12/31/24 12:36 Lactated Ringer's 1000 Ml Bag IV 12/31/24 12:57 999 mls/hr .Q31M ONE Administration Magnesium Sulfate 2 gm in 50 mls @ 50 mls/hr 12/31/24 13:09 12/31/24 13:14 Magnesium Sulfate 2gm/50ml Premix IV 12/31/24 14:08 50 mls/hr ONCE ONE Administration Methylprednisolone Sodium Succinate 125 mg 12/31/24 12:27 12/31/24 12:35 Methylprednisolone Sod Succ 125mg Vial IV 12/31/24 12:28 125 mg ONCE ONE Administration ORDERS Category Date Time Status CXR --portable [XR chest portable] Stat Exams 12/31/24 12:27 Completed CBC w/Auto Diff [Complete Blood Count Auto Diff] Stat Lab 12/31/24 12:35 Completed CMP [Comprehensive Metabolic Panel] Stat Lab 12/31/24 12:35 Completed Complete Blood Count Auto Diff [facility] Lab 01/01/25 06:00 Ordered Complete Blood Count Auto Diff [facility] Lab 01/02/25 06:00 Ordered Complete Blood Count Auto Diff [facility] Lab 01/03/25 06:00 Ordered Complete Blood Count Auto Diff [facility] Lab 01/04/25 06:00 Ordered Complete Blood Count Auto Diff [facility] Lab 01/05/25 06:00 Ordered Comprehensive Metabolic Panel [facility] Lab 01/01/25 06:00 Ordered Comprehensive Metabolic Panel [facility] Lab 01/02/25 06:00 Ordered Comprehensive Metabolic Panel [facility] Lab 01/03/25 06:00 Ordered Comprehensive Metabolic Panel [facility] Lab 01/04/25 06:00 Ordered Comprehensive Metabolic Panel [facility] Lab 01/05/25 06:00 Ordered D-Dimer Stat Lab 12/31/24 12:35 Completed Magnesium [facility] Lab 01/01/25 06:00 Ordered Magnesium [facility] Lab 01/02/25 06:00 Ordered Magnesium [facility] Lab 01/03/25 06:00 Ordered Magnesium [facility] Lab 01/04/25 06:00 Ordered Magnesium [facility] Lab 01/05/25 06:00 Ordered Magnesium Stat Lab 12/31/24 12:35 Completed Trop I [Troponin I] Stat Lab 12/31/24 12:35 Completed Troponin I Q3H Lab 12/31/24 18:30 Ordered VBG [Venous Blood Gas] Stat RT 12/31/24 14:36 Completed Medical Decision Narrative: In summary, patient is a 59-year-old female PMHx COPD, current tobacco use (1pk day / 45 years), history of lung nodules, who presents to the ED for complaints of shortness of breath and cough. Patient states her symptoms started this past Saturday and have progressively worsened. States she has taken Mucinex without any relief. Patient states she has had a productive cough and increased wheezing. Denies fever, headache, chest pain, back pain, abdominal pain, nausea, vomiting, dysuria. Upon initial evaluation patient is alert, oriented and cooperative. She is tachypneic, tachycardic, hypertensive. Physical exam remarkable for expiratory wheezing, mild respiratory distress. Discussed with patient we will proceed with hematologic labs, chest x-ray, DuoNeb and Solu-Medrol. Patient states she has had Solu-Medrol in the past without adverse reaction. Differential diagnosis include ACS, PE, COPD exacerbation, pneumonia, pneumothorax, infectious process, among others. CBC unremarkable for any leukocytosis, stable H&H. CMP remarkable for sodium 133, first troponin < 0.01. D-dimer 0.71 (YEARS criteria negative, will not proceed with CT chest). Chest x-ray unremarkable for any acute findings. Upon reassessment, patient continues to be tachypneic, no longer tachycardic. Will do continuous DuoNeb and IV mag over 30 minutes. Upon further reassessment, patient's saturation dropped to 87%, patient placed on 2 L nasal cannula. Attempted to wean patient from O2 multiple times without success. Discussed with patient due to new oxygen requirement and COPD exacerbation we need to admit to hospital medicine for further evaluation. Patient is agreeable to plan of care. <Khari Judd MD - Last Filed: 12/31/24 15:38> Vital Signs: 12/31/24 12:24 12/31/24 12:27 12/31/24 13:01 Temperature 97.6 F Temperature Source Oral Pulse Rate 107 H 97 H Pulse Rate [Right Brachial] 111 H Respiratory Rate 24 Blood Pressure 159/100 H 132/89 Blood Pressure [Right Arm] 173/107 H Blood Pressure Mean [Right Arm] 129 Blood Pressure Source [Right Arm] Automatic Cuff Blood Pressure Position [Right Arm] Supine 02 Sat by Pulse Oximetry 94 L 92 L 92 L Oxygen Delivery Method Room Air Room Air Room Air Oxygen Flow Rate (LPM) 12/31/24 14:00 12/31/24 15:00 Temperature Temperature Source Pulse Rate 90 90 Pulse Rate [Right Brachial] Respiratory Rate Blood Pressure 111/72 127/73 Blood Pressure [Right Arm] Blood Pressure Mean [Right Arm] Blood Pressure Source [Right Arm] Blood Pressure Position [Right Arm] 02 Sat by Pulse Oximetry 95 94 L Oxygen Delivery Method Room Air Room Air Oxygen Flow Rate (LPM) 2 Lab Data Lab Results 12/31/24 12:35: WBC 7.7, RBC 5.10, Hgb 15.4, Hct 44.9, MCV 88.0, MCH 30.2, MCHC 34.3, RDW 12.7, Plt Count 200, MPV 9.9, Neut % (Auto) 72.1, Lymph % (Auto) 20.8, Jenkins % (Auto) 6.1, Eos % (Auto) 0.3, Baso % (Auto) 0.4, Neut # (Auto) 5.5, Lymph # (Auto) 1.6, Jenkins # (Auto) 0.5, Eos # (Auto) 0.0, Baso # (Auto) 0.0, D-Dimer 0.71 H, Sodium 133 L, Potassium 3.9, Chloride 97 L, Carbon Dioxide 29, Anion Gap 10.9, BUN 14, Creatinine 0.80, Estimated Creat Clear 65, Estimated GFR 74, Est GFR ( Amer) 89, Glucose 145 H, Calcium 8.9, Magnesium 2.0, Total Bilirubin 0.7, AST 40 H, ALT 22, Alkaline Phosphatase 78, Troponin I < 0.01, Total Protein 7.7, Albumin 4.7, Globulin 3.0, Albumin/Globulin Ratio 1.6 12/31/24 14:36: VBG pH 7.35, VBG pCO2 45.0, VBG pO2 40.2 H, VBG HCO3 24.4, VBG Total CO2 25.8, VBG O2 Saturation 72.6 H, VBG Base Excess -1.2, VBG Lactic Acid 1.6 Orders (Tests/Meds): ED MEDICATIONS Generic Name Dose Route Start Last Admin Trade Name Freq PRN Reason Stop Dose Admin Acetaminophen 650 mg 12/31/24 15:18 Acetaminophen 325mg Tab PO 01/30/25 15:17 Q4HP PRN Fever or Mild Pain (1-3) Albuterol/Ipratropium 3 ml 12/31/24 18:00 Ipratropium/Albuterol [address] [facility] 01/30/25 17:59 Q6RT [facility] Budesonide 0.5 mg 12/31/24 18:00 Budesonide 0.5mg/2ml [facility] 01/30/25 17:59 BIDRT [facility] Enoxaparin Sodium 40 mg 01/01/25 09:00 Enoxaparin 40mg/0.4ml Syringe SUBCUT 01/31/25 08:59 DAILY [facility] Ondansetron HCl 4 mg 12/31/24 15:18 Ondansetron 4mg/2ml Vial IV 01/30/25 15:17 Q8HP PRN Nausea Prednisone 40 mg 01/01/25 09:00 Prednisone 20mg Tab PO 01/31/25 08:59 DAILY [facility] Discontinued Medications Generic Name Dose Route Start Last Admin Trade Name Freq PRN Reason Stop Dose Admin Albuterol/Ipratropium 3 ml 12/31/24 12:27 12/31/24 12:36 Ipratropium/Albuterol [address] [facility] 12/31/24 12:28 3 ml ONCE ONE Administration Albuterol/Ipratropium 9 ml 12/31/24 13:08 12/31/24 13:13 Ipratropium/Albuterol [address] [facility] 12/31/24 13:09 9 ml ONCE ONE Administration Lactated Ringer's 500 mls @ 999 mls/hr 12/31/24 12:27 12/31/24 12:36 Lactated Ringer's 1000 Ml Bag IV 12/31/24 12:57 999 mls/hr .Q31M ONE Administration Magnesium Sulfate 2 gm in 50 mls @ 50 mls/hr 12/31/24 13:09 12/31/24 13:14 Magnesium Sulfate 2gm/50ml Premix IV 12/31/24 14:08 50 mls/hr ONCE ONE Administration Methylprednisolone Sodium Succinate 125 mg 12/31/24 12:27 12/31/24 12:35 Methylprednisolone Sod Succ 125mg Vial IV 12/31/24 12:28 125 mg ONCE ONE Administration ORDERS Category Date Time Status CXR --portable [XR chest portable] Stat Exams 12/31/24 12:27 Completed CBC w/Auto Diff [Complete Blood Count Auto Diff] Stat Lab 12/31/24 12:35 Completed CMP [Comprehensive Metabolic Panel] Stat Lab 12/31/24 12:35 Completed Complete Blood Count Auto Diff [facility] 01/01/25 06:00 Ordered Complete Blood Count Auto Diff [facility] Lab 01/02/25 06:00 Ordered Complete Blood Count Auto Diff [facility] 01/03/25 06:00 Ordered Complete Blood Count Auto Diff [facility] Lab 01/04/25 06:00 Ordered Complete Blood Count Auto Diff [facility] Lab 01/05/25 06:00 Ordered Comprehensive Metabolic Panel [facility] 01/01/25 06:00 Ordered Comprehensive Metabolic Panel [facility] 01/02/25 06:00 Ordered Comprehensive Metabolic Panel [facility] 01/03/25 06:00 Ordered Comprehensive Metabolic Panel [facility] Lab 01/04/25 06:00 Ordered Comprehensive Metabolic Panel [facility] 01/05/25 06:00 Ordered D-Dimer Stat Lab 12/31/24 12:35 Completed Magnesium [facility] Lab 01/01/25 06:00 Ordered Magnesium [facility] Lab 01/02/25 06:00 Ordered Magnesium [facility] Lab 01/03/25 06:00 Ordered Magnesium [facility] Lab 01/04/25 06:00 Ordered Magnesium [facility] Lab 01/05/25 06:00 Ordered Magnesium Stat Lab 12/31/24 12:35 Completed Trop I [Troponin I] Stat Lab 12/31/24 12:35 Completed Troponin I Q3H Lab 12/31/24 18:30 Ordered VBG [Venous Blood Gas] Stat RT 12/31/24 14:36 Completed Medical Decision Narrative: In summary, patient is a 59-year-old female PMHx COPD, current tobacco use (1pk day / 45 years), history of lung nodules, who presents to the ED for complaints of shortness of breath and cough. Patient states her symptoms started this past Saturday and have progressively worsened. States she has taken Mucinex without any relief. Patient states she has had a productive cough and increased wheezing. Denies fever, headache, chest pain, back pain, abdominal pain, nausea, vomiting, dysuria. Upon initial evaluation patient is alert, oriented and cooperative. She is tachypneic, tachycardic, hypertensive. Physical exam remarkable for expiratory wheezing, mild respiratory distress. Discussed with patient we will proceed with hematologic labs, chest x-ray, DuoNeb and Solu-Medrol. Patient states she has had Solu-Medrol in the past without adverse reaction. Differential diagnosis include ACS, PE, COPD exacerbation, pneumonia, pneumothorax, infectious process, among others. CBC unremarkable for any leukocytosis, stable H&H. CMP remarkable for sodium 133, first troponin < 0.01. D-dimer 0.71 (YEARS criteria negative, will not proceed with CT chest). Chest x-ray unremarkable for any acute findings. Upon reassessment, patient continues to be tachypneic, no longer tachycardic. Will do continuous DuoNeb and IV mag over 30 minutes. Upon further reassessment, patient's saturation dropped to 87%, patient placed on 2 L nasal cannula. Attempted to wean patient from O2 multiple times without success. Discussed with patient due to new oxygen requirement and COPD exacerbation we need to admit to hospital medicine for further evaluation. Patient is agreeable to plan of care. Anuj Judd MD interpreted the EKG of this patient to demonstrate normal sinus rhythm without acute ischemic ST change. Intervals within normal limits. Not acutely actionable. I was consulted by the JEREMY, and we discussed the complexity of problems being addressed. I approved the treatment and management plan for this patient's care in the emergency department, thus performing a substantial portion of the medical decision making. Khari Jdud MD Critical Care <Meenu Pereira, MAINTENANCE MACHINIST - Last Filed: 12/31/24 15:33> Critical Care Time Critical Care Time: No
--- NOTE | 2024-12-31 12:50 | ECG_ITS ---
APPROVED REPORT Exam: Resting ECG HR:95 bpm ECG Measurements Heart Rate 95 AXES [place] 133 P 81 QRSd 86 QRS 58 QT 305 T -62 QTc [address] DEVIATION AND MODERATE T-WAVE ABNORMALITY, CONSIDER INFERIOR ISCHEMIA [-0.1+ mV T-WAVE IN II/aVF] ABNORMAL ECG UNCONFIRMED REPORT Electronically signed by : Khari Judd, 12/31/2024 16:18:10
[2024-12-31 12:53] LABS: Alanine Aminotransferase 22 U/L (12-78); Albumin Level 4.7 g/dl (3.5-5.0); Albumin/Globulin Ratio 1.6 (1.1-1.8); Alkaline Phosphatase 78 U/L (38-126); Anion Gap 10.9 mEq/L (5-15); Aspartate Amino Transferase 40 U/L (14-36); Bilirubin,Total 0.7 mg/dl (0.2-1.3); Blood Urea Nitrogen 14 mg/dl (7-17); Calcium 8.9 mg/dl (8.4-10.2); Carbon Dioxide 29 mmol/L (22.0-30.0); Chloride 97 mmol/L (98-107); Creatinine Clearance Estimated 65 mL/min (50-200); Estimated Glomerular Filt Rate 74 ml/min (>60); GFR (African American) 89 ML/MIN (>60); Glucose 145 mg/dl (74-100); Potassium 3.9 mmoL/L (3.5-5.1); Sodium 133 mmol/L (136-145); Total Protein,Serum 7.7 g/dl (6.3-8.2)
[2024-12-31 12:57] LABS: D-Dimer 0.71 ug/mL (0.0-0.5)
[2024-12-31 13:06] LABS: Troponin I < 0.01 ng/ml (0.00-0.034)
[2024-12-31] MEDS: IPRATROPIUM/ALBUTEROL 3 ML NEB 9 ML IH (13:13)
[2024-12-31] MEDS: MAGNESIUM SULFATE IN WATER 2 GM/50 ML PIGGYBACK IV (13:14)
--- NOTE | 2024-12-31 14:22 | PC.NURSE ---
After all treatments patient oxygen was turned off and sats dropped to 88%, ER provider made aware and O2 turned back on 2L via nasal cannula
[2024-12-31 14:47] LABS: Lactate Venous 1.6 mmol/L (0.4-2.0); VBG Base Excess -1.2 mmol/L (-2.4-2.3); VBG HCO3 24.4 mmol/L (23-30); VBG Oxygen Saturation 72.6 % (50-70); VBG PH 7.35 mmol/L (7.31-7.41); VBG PO2 40.2 mmol/L (28-40); VBG Total CO2 25.8 mmol/L (23-27)
--- NOTE | 2024-12-31 16:20 | PC.NURSE ---
arrived by w/c from ED
--- NOTE | 2024-12-31 18:09 | PC.NURSE ---
patient stated she takes a B12 injection weekly for the last two weeks. Beauty Director unable to enter in the medication on med rec due to med rec stating medication no longer avaliable.
[2024-12-31] MEDS: BUDESONIDE 0.5MG/2ML NEB 0.5 MG IH (18:25)
--- NOTE | 2024-12-31 18:43 | P.HP_ITS ---
<Statement entered by Jeremias Guillermo MD - 01/04/25 17:01> Personally evaluated the patient and agree with the plan of care as outlined by the NURSE CHARGE RN. History of Present Illness *Admission Date: 12/31/24 *Reason for visit:: Shortness of breath *History of present illness: This is a 59-year-old female who has a past medical history significant for multiple lung nodules, COPD, and neck and shoulder pain who presents with a chief complaint of shortness of breath and nonproductive cough. Due to patient's symptoms, she presented to the emergency room for evaluation. While in the emergency room, chest x-ray per my read was negative for any acute cardiopulmonary process. Unfortunately, patient was acutely hypoxic in the emergency room with oxygen saturations on room air in the upper 80 percentile. Patient was placed on supplemental oxygen of 2 L and hospital medicine was consulted for further management. During my evaluation of patient, patient states she started to feel unwell on Saturday. Her symptoms started with generalized body aching. Over the course of the next 24 to 48 hours patient started to experience nonproductive cough, increased shortness of air, fatigue, decreased p.o. intake, wheezing, and generalized malaise. Patient reports not being in contact with any known sick individuals. It is worth mentioning, the patient states she still smokes at least approximately a pack a day. She is currently denying any chest pain, li ghtheadedness, dizziness, fever, chills, rigors, nausea, vomiting, PND, orthopnea, swelling to lower extremities, or diarrhea. Additional pertinent vitals obtained include a D-dimer 0.71, sodium 133, chloride of 97, blood glucose of 145, and AST of 40. [facility] Disclaimer: The information contained in this section may have been updated after the patient was seen, as this information can be updated by other users. Medical History (Updated 12/31/24 @ 18:50 by Suresh Cotto APRN) Multiple lung nodules on CT Encounter for screening for malignant neoplasm of lung Stopped smoking with greater than 30 pack year history COPD mixed type Surgical History (Updated 12/31/24 @ 16:46 by Justina Mcintosh, HANNAH) History of repair of left rotator cuff History of neck surgery History of surgery on upper extremity History of tubal ligation Family History Other COPD (chronic obstructive pulmonary disease) Heart attack Hypertension Social History (Updated 12/31/24 @ 16:46 by Justina Mcintosh RN) Smoking Status: Current every day smoker tobacco type: cigarettes packs per day: 1 smoking status stop date: 02/03/2023 second hand exposure: No alcohol intake: never substance use type: denies use current occupational status: employed Travel in the last 8 weeks?: None household members: significant other housing: house marital status: single Have you lived/traveled outside [place] in past 30 days?: No Contact w/someone who lives/traveled outside [place] past 30 days?: No Exposure to someone with infectious disease in past 14 days?: No Do you have a fever (greater than 100.4 F or 38 C)?: No Have you tested positive for COVID-19?: No Exposed to someone with COVID-19 in past 14 days?: No Do you have a sore throat?: No Do you have a cough?: No Do you have any weakness?: No Are you experiencing any nausea/vomitting?: No Do you have any diarrhea?: No Are you experiencing any unusual bleeding?: No Do you have any muscle aches/pain?: No Do you have any abdominal pain?: No Are you experiencing loss of taste or smell?: No Other Medical History Have you received the Flu Vaccine for this season: No Have you received the Pneumonia Vaccine: No Review of Systems Review of Systems Review of systems:: pertinent systems reviewed and negative unless documented below Constitutional Constitutional: Reports body ache(s), Reports fatigue, Reports lethargy and Reports malaise Eyes Eyes: Reports system reviewed and no additional complaints, except as documented ENT Ears, Nose, Mouth, and Throat: Reports system reviewed and no additional complaints, except as documented *Cardiovascular Cardiovascular: Reports system reviewed and no additional complaints, except as documented and Reports dyspnea *Respiratory Respiratory: Reports cough and Reports dyspnea *Gastrointestinal Gastrointestinal: Reports system reviewed and no additional complaints, except as documented *Genitourinary Genitourinary: Reports system reviewed and no additional complaints, except as documented *Musculoskeletal Musculoskeletal: Reports system reviewed and no additional complaints, except as documented Integumentary/Breasts Skin/Breast: Reports system reviewed and no additional complaints, except as documented *Neurologic Neurologic: Reports system reviewed and no additional complaints, except as documented Psychiatric Psychiatric: Reports system reviewed and no additional complaints, except as documented Endocrine Endocrine: Reports system reviewed and no additional complaints, except as documented and Reports fatigue Hematologic/Lymphatic Hematologic/Lymphatic: Reports system reviewed and no additional complaints, except as documented Allergic/Immunologic Allergic/Immunologic: Reports system reviewed and no additional complaints, except as documented Meds Home Medications and Allergies Home Medications ?Medication ?Instructions ?Recorded ?Confirmed ?Type albuterol sulfate 90 mcg/actuation 1 inh inhalation QID PRN shortness 01/29/22 12/31/24 Rx aerosol inhaler of breath or wheezing 90 days #8.5 grams umeclidinium 62.5 mcg-vilanterol 1 inh inhalation DAILY 90 days #90 09/30/24 12/31/24 Rx 25 mcg/actuation powdr for ea inhalation (Anoro Ellipta) meloxicam 15 mg tablet 15 mg PO Q6 PRN Pain 12/31/24 12/31/24 History New Prescriptions to Start Prescriptions: Allergies Allergy/AdvReac Type Severity Reaction Status Date / Time No Known Allergies Allergy Verified 05/12/24 08:29 Exam Data for Last 24 hours Vital signs and Labs for Last 24 Hours: Temp Pulse Resp BP Pulse Ox O2 Del Method O2 Flow Rate 98 F 90 20 124/81 92 L Nasal Cannula 1.5 12/31/24 16:00 12/31/24 18:22 12/31/24 16:00 12/31/24 16:00 12/31/24 16:00 12/31/24 18:22 12/31/24 18:22 Laboratory Results - last 24 hr 12/31/24 12:35: WBC 7.7, RBC 5.10, Hgb 15.4, Hct 44.9, MCV 88.0, MCH 30.2, MCHC 34.3, RDW 12.7, Plt Count 200, MPV 9.9, Neut % (Auto) 72.1, Lymph % (Auto) 20.8, [place] % (Auto) 6.1, Eos % (Auto) 0.3, Baso % (Auto) 0.4, Neut # (Auto) 5.5, Lymph # (Auto) 1.6, [place] # (Auto) 0.5, Eos # (Auto) 0.0, Baso # (Auto) 0.0, D-Dimer 0.71 H, Sodium 133 L, Potassium 3.9, Chloride 97 L, Carbon Dioxide 29, Anion Gap 10.9, BUN 14, Creatinine 0.80, Estimated Creat Clear 65, Estimated GFR 74, Est GFR ( Amer) 89, Glucose 145 H, Calcium 8.9, Magnesium 2.0, Total Bilirubin 0.7, AST 40 H, ALT 22, Alkaline Phosphatase 78, Troponin I < 0.01, Total Protein 7.7, Albumin 4.7, Globulin 3.0, Albumin/Globulin Ratio 1.6 12/31/24 14:36: VBG pH 7.35, VBG pCO2 45.0, VBG pO2 40.2 H, VBG HCO3 24.4, VBG Total CO2 25.8, VBG O2 Saturation 72.6 H, VBG Base Excess -1.2, VBG Lactic Acid 1.6 I & O for Last 24 hours: Intake & Output 12/28/24 12/29/24 12/30/24 12/31/24 23:59 23:59 23:59 23:59 Intake Total 480 / 480 Balance 480 / 480 Weight 60.101 kg Constitutional Constitutional: no acute distress and cooperative *Routine HEENT Exam Head: Present normocephalic and atraumatic Eye: Present EOMI and PERRL ENT: Present mucous membranes moist *Routine Neck Exam Neck: Present supple, full ROM and trachea midline *Routine Respiratory Exam Respiratory: Present wheezes *Routine Cardiovascular Exam Cardiovascular: Present RRR, Normal S1 and Normal S2 *Routine Abdominal Exam Abdominal: Present soft and normoactive bowel sounds *Routine Rectal Exam Rectal:: deferred *Routine Genitalia Exam Genitalia:: deferred *Routine Extremities Exam Extremities: Present full ROM, pulses intact and normal capillary refill Routine Back/Spine/Pelvis Exam Back/Spine: Present full ROM *Routine Skin Exam Skin: Present intact, dry and warm *Routine Neurological Exam Neurological: Present alert, oriented X3, CN II-XII intact, moving all extremities and normal speech Routine Psychiatric Exam Psychiatric: Present normal affect, normal thought process, cooperative, good insight and good judgment H&P: Result Impressions This is a 59-year-old female who presents with acute hypoxia in the setting of COPD exacerbation. Patient is a current smoker of a pack a day for multiple years. Normally, patient is independent of any supplemental oxygen. Assessment and Plan *Assessment and plan (1) Acute hypoxic respiratory failure: Status: Acute Category: Medical Code(s): J96.01 - Acute respiratory failure with hypoxia (2) COPD exacerbation: Status: Acute Category: Medical Code(s): J44.1 - Chronic obstructive pulmonary disease with (acute) exacerbation (3) Elevated d-dimer: Status: Acute Category: Medical Code(s): R79.89 - Other specified abnormal findings of blood chemistry Plan Assessment: Acute hypoxic respiratory failure - Will continue supplemental oxygen to maintain oxygen saturation greater than 94% - The goal will be to liberate patient from oxygen over the next 24 to 48 hours\ -Hopefully, patient will maintain oxygen saturation greater 94% both at rest and during ambulation -Both walking and resting oxygen saturation will be assessed at the time of discharge -If patient is still experiencing acute hypoxemia, will establish home O2 for patient COPD exacerbation -Gold stage is unknown -Patient may benefit from pulmonary function test as an outpatient -Due to the potential for endobronchial infection, will cover with 500 mg levofloxacin-this is subject to change per attending -Will give 200 mg of Tessalon Perles every 4 hours as needed cough -0.5 mg of budesonide nebulized treatment twice daily - DuoNebs every 6 hours Elevated D-dimer - Will consider CTA of the chest if symptomology worsens or do not improve Plan: Admit patient to the MedSurg unit Activity as tolerated Vital signs every 8 hours Regular diet CBC/CMP/magnesium daily 40 mg Lovenox subcu daily for DVT prophylaxis Saline lock 21 mg nicotine patch daily 4 mg Zofran IV push. Hours for nausea vomiting/ 40 mg of prednisone p.o. daily Full code I have discussed this case with attending physician Dr. Guillermo and I look forward to more input
[2024-12-31 20:04] LABS: Troponin I < 0.01 ng/ml (0.00-0.034)
[2024-12-31] MEDS: NICOTINE 21MG/24HR PATCH 21 MG TD (20:25)
[2024-12-31] MEDS: levoFLOXacin 500MG TAB 500 MG PO (20:25)
[2024-12-31 23:21] LABS: Coronavirus 19, PCR Not Detected (NotDetected); Human Rhinovirus Not Detected (NotDetected); Influenza A, PCR Not Detected (NotDetected); Influenza B, PCR Not Detected (NotDetected); Respiratory Syncytial Virus Not Detected (NotDetected)
[2025-01-01] MEDS: ACETAMINOPHEN 325MG TAB 650 MG PO ×3 (01:11→13:50)
--- NOTE | 2025-01-01 03:18 | PC.NURSE ---
Pt AOx4, pleasant. Denies pain or any complaints continually. Currently on 2L O2 and stats have been staying around 92%. Pt resting in bed with eyes closed. Respirations even and unlabored. Bed is low, locked, and call light is in reach.
[2025-01-01 04:00] VITALS: BP 139/85; PULSE 84; RESP 16; TEMP 36.8; O2SAT 92; BMI 23.2
[2025-01-01] MEDS: IPRATROPIUM/ALBUTEROL 3 ML NEB IH ×2 (05:59→11:06)
[2025-01-01 06:00] VITALS: PULSE 83; PULSE 87; O2SAT 97
[2025-01-01] MEDS: BUDESONIDE 0.5MG/2ML NEB 0.5 MG IH (06:00)
[2025-01-01 06:31] LABS: Basophils % 0.2 % (0.1-2.0); Eosinophils % 0.2 % (0.1-12.0); Hematocrit 36.2 % (37.0-47.0); Immature Granulocytes # 0.02 10^3uL; Immature Granulocytes % 0.3 %; Lymphocytes # 1.9 K/mm3 (0.7-4.5); Lymphocytes % 30.1 % (10-50); Mean Corpuscular HGB Conc 34.5 g/dL (31.8-35.4); Mean Corpuscular Hemoglobin 30.8 pg (27.0-31.2); Mean Corpuscular Volume 89.2 fl (81-99); Mean Platelet Volume 10.1 fl (7.4-10.4); Monocytes # 0.5 K/mm3 (0.1-1.0); Monocytes % 7.8 % (1.7-9.3); Neutrophils # 3.9 K/mm3 (1.8-7.8); Neutrophils % 61.4 % (37.0-80.0); Nucleated Red Blood Cells # 0 10^3/uL; Nucleated Red Blood Cells % 0 %; Platelet Count 207 K/mm3 (142-424); Red Blood Count 4.06 M/mm3 (4.20-5.40); Red Cell Distribution Width 12.6 % (11.5-17.5); Red Cell Distribution Width-SD 41.4 fL; White Blood Count 6.3 K/mm3 (4.8-10.8)
[2025-01-01 06:39] LABS: Alanine Aminotransferase 21 U/L (12-78); Albumin Level 3.8 g/dl (3.5-5.0); Albumin/Globulin Ratio 1.6 (1.1-1.8); Alkaline Phosphatase 61 U/L (38-126); Anion Gap 4.3 mEq/L (5-15); Aspartate Amino Transferase 34 U/L (14-36); Bilirubin,Total 0.4 mg/dl (0.2-1.3); Blood Urea Nitrogen 12 mg/dl (7-17); Calcium 8.7 mg/dl (8.4-10.2); Carbon Dioxide 31 mmol/L (22.0-30.0); Chloride 99 mmol/L (98-107); Creatinine Clearance Estimated 86 mL/min (50-200); Estimated Glomerular Filt Rate 86 ml/min (>60); GFR (African American) 104 ML/MIN (>60); Globulin 2.4 g/dL (1.3-3.2); Glucose 109 mg/dl (74-100); Magnesium 2.3 mg/dl (1.6-2.3); Potassium 3.3 mmoL/L (3.5-5.1); Sodium 131 mmol/L (136-145); Total Protein,Serum 6.2 g/dl (6.3-8.2)
[2025-01-01 06:42] LABS: Hemoglobin 12.5 g/dL (12.2-16.2)
--- NOTE | 2025-01-01 07:22 | HMH.PHAINT1 ---
Pharmacy Intervention Comments: MEDICATION RECONCILIATION COMPLETED ON PATIENT USING EXTERNAL FILL HISTORY FROM PHARMACY. -REBECCA CHANEL, CAILIND
[2025-01-01 08:00] VITALS: BP 142/78; PULSE 97; RESP 17; TEMP 36.6; O2SAT 94; O2SAT 95
[2025-01-01] MEDS: predniSONE 20MG TAB 40 MG PO (08:16)
[2025-01-01] MEDS: ENOXAPARIN 40MG/0.4ML SYRINGE 40 MG SUBCUT (08:16)
[2025-01-01] MEDS: POTASSIUM CHLORIDE 20MEQ TAB 40 MEQ PO ×2 (08:16→13:50)
[2025-01-01] MEDS: NICOTINE 21MG/24HR PATCH 21 MG TD (08:16)
[2025-01-01 11:07] VITALS: PULSE 85; PULSE 89; O2SAT 90
[2025-01-01] MEDS: levoFLOXacin 500MG TAB 500 MG PO (11:22)
--- NOTE | 2025-01-01 12:07 | P.DS_ITS ---
General Admission date:: 12/31/24 HPI HPI HPI: This is a 59-year-old female who has a past medical history significant for multiple lung nodules, COPD, and neck and shoulder pain who presents with a chief complaint of shortness of breath and nonproductive cough. Due to patient's symptoms, she presented to the emergency room for evaluation. While in the emergency room, chest x-ray per my read was negative for any acute cardiopulmonary process. Unfortunately, patient was acutely hypoxic in the emergency room with oxygen saturations on room air in the upper 80 percentile. Patient was placed on supplemental oxygen of 2 L and hospital medicine was consulted for further management. During my evaluation of patient, patient states she started to feel unwell on Saturday. Her symptoms started with generalized body aching. Over the course of the next 24 to 48 hours patient started to experience nonproductive cough, increased shortness of air, fatigue, decreased p.o. intake, wheezing, and generalized malaise. Patient reports not being in contact with any known sick individuals. It is worth mentioning, the patient states she still smokes at least approximately a pack a day. She is currently denying any chest pain, lightheadedness, dizziness, fever, chills, rigors, nausea, vomiting, PND, orthopnea, swelling to lower extremities, or diarrhea. Additional pertinent vitals obtained include a D-dimer 0.71, sodium 133, chloride of 97, blood glucose of 145, and AST of 40. Hospital Course Hospital Course Hospital Course: Nay Duenas is a 59-year-old female who presented with shortness of breath and was admitted for acute hypoxic respiratory failure from COPD exacerbation. #Acute hypoxic respiratory failure #Acute COPD exacerbation ? Progressive shortness of breath, wheezing over the past few days. Former smoker, but has recently started smoking again. ? CXR without acute findings, negative for influenza and COVID-19. ? Clinically improved with DuoNebs, Pulmicort, steroids. Initially required 2 L nasal cannula, weaned to room air with appropriate saturations. ? Given that patient has recently started smoking again an elevated eosinophil count of 300, will switch from home Anoro Ellipta to Trelegy 100. ? Discharged with Trelegy 100, prednisone 40 mg, levofloxacin 500 mg for 3 more days. Also discharged with nicotine patches, nebulizer machine, DuoNebs as needed every 4-6 hours. Total time spent on discharge: 33 minutes on chart review, counseling, doc umentation, and direct care with patient. Exam Data for Last 24 hours Vital signs and Labs for Last 24 Hours: Temp Pulse Resp BP Pulse Ox O2 Del Method O2 Flow Rate 97.9 F 89 17 142/78 H 90 L Room Air 0.5 01/01/25 08:00 01/01/25 11:07 01/01/25 08:00 01/01/25 08:00 01/01/25 11:07 01/01/25 11:07 01/01/25 06:00 Laboratory Results - last 24 hr 12/31/24 12:35: WBC 7.7, RBC 5.10, Hgb 15.4, Hct 44.9, MCV 88.0, MCH 30.2, MCHC 34.3, RDW 12.7, Plt Count 200, MPV 9.9, Neut % (Auto) 72.1, Lymph % (Auto) 20.8, [place] % (Auto) 6.1, Eos % (Auto) 0.3, Baso % (Auto) 0.4, Neut # (Auto) 5.5, Lymph # (Auto) 1.6, [place] # (Auto) 0.5, Eos # (Auto) 0.0, Baso # (Auto) 0.0, D-Dimer 0.71 H, Sodium 133 L, Potassium 3.9, Chloride 97 L, Carbon Dioxide 29, Anion Gap 10.9, BUN 14, Creatinine 0.80, Estimated Creat Clear 65, Estimated GFR 74, Est GFR ( Amer) 89, Glucose 145 H, Calcium 8.9, Magnesium 2.0, Total Bilirubin 0.7, AST 40 H, ALT 22, Alkaline Phosphatase 78, Troponin I < 0.01, Total Protein 7.7, Albumin 4.7, Globulin 3.0, Albumin/Globulin Ratio 1.6 12/31/24 14:36: VBG pH 7.35, VBG pCO2 45.0, VBG pO2 40.2 H, VBG HCO3 24.4, VBG Total CO2 25.8, VBG O2 Saturation 72.6 H, VBG Base Excess -1.2, VBG Lactic Acid 1.6 12/31/24 18:39: Troponin I < 0.01 12/31/24 23:17: SARS-CoV-2 (PCR) Not detected, Influenza Type A (PCR) Not detected, Influenza Type B (PCR) Not detected, RSV (PCR) Not detected, Rhi novirus (PCR) Not detected 01/01/25 05:37: WBC 6.3, RBC 4.06 L, Hgb 12.5 D, Hct 36.2 L, MCV 89.2, MCH 30.8, MCHC 34.5, RDW 12.6, Plt Count 207, MPV 10.1, Neut % (Auto) 61.4, Lymph % (Auto) 30.1, [place] % (Auto) 7.8, Eos % (Auto) 0.2, Baso % (Auto) 0.2, Neut # (Auto) 3.9, Lymph # (Auto) 1.9, [place] # (Auto) 0.5, Eos # (Auto) 0.0, Baso # (Auto) 0.0, Sodium 131 L, Potassium 3.3 L, Chloride 99, Carbon Dioxide 31 H, Anion Gap 4.3 L, BUN 12, Creatinine 0.70, Estimated Creat Clear 86, Estimated GFR 86, Est GFR ( Amer) 104, Glucose 109 H D, Calcium 8.7, Magnesium 2.3 D, Total Bilirubin 0.4, AST 34, ALT 21, Alkaline Phosphatase 61, Total Protein 6.2 L, Albumin 3.8 D, Globulin 2.4, Albumin/Globulin Ratio 1.6 I & O for Last 24 hours: Intake & Output 12/29/24 12/30/24 12/31/24 01/01/25 23:59 23:59 23:59 23:59 Intake Total 480 / 1140 1440 / 1440 Output Total 0 / 0 Balance 480 / 1140 1440 / 1440 Weight 60.101 kg 61.643 kg Constitutional Constitutional: no acute distress *Routine HEENT Exam Head: Present normocephalic Eye: Present EOMI and PERRL ENT: Present mucous membranes moist *Routine Neck Exam Neck: Present supple; Absent lymphadenopathy *Routine Respiratory Exam Respiratory: Present wheezes; Absent CTA bilaterally *Routine Cardiovascular Exam Cardiovascular: Present RRR *Routine Abdominal Exam Abdominal: Present soft and normoactive bowel sounds; Absent tenderness *Routine Extremities Exam Extremities: Absent cyanosis, clubbing or edema *Routine Skin Exam Skin: Present warm; Absent rash *Routine Neurological Exam Neurological: Present alert and oriented X3 Results Data Completed and Pending Labs on day of discharge: Labs from last 24 hours 01/01/25 12/31/24 12/31/24 05:37 23:17 18:39 WBC 6.3 RBC 4.06 L Hgb 12.5 D Hct 36.2 L MCV 89.2 MCH 30.8 MCHC 34.5 RDW 12.6 Plt Count 207 MPV 10.1 Neut % (Auto) 61.4 Lymph % (Auto) 30.1 [place] % (Auto) 7.8 Eos % (Auto) 0.2 Baso % (Auto) 0.2 Neut # (Auto) 3.9 Lymph # (Auto) 1.9 [place] # (Auto) 0.5 Eos # (Auto) 0.0 Baso # (Auto) 0.0 D-Dimer VBG pH VBG pCO2 VBG pO2 VBG HCO3 VBG Total CO2 VBG O2 Saturation VBG Base Excess VBG Lactic Acid Sodium 131 L Potassium 3.3 L Chloride 99 Carbon Dioxide 31 H Anion Gap 4.3 L BUN 12 Creatinine 0.70 Estimated Creat Clear 86 Estimated GFR 86 Est GFR ( Amer) 104 Glucose 109 H D Calcium 8.7 Magnesium 2.3 D Total Bilirubin 0.4 AST 34 ALT 21 Alkaline Phosphatase 61 Troponin I < 0.01 Total Protein 6.2 L Albumin 3.8 D Globulin 2.4 Albumin/Globulin Ratio 1.6 SARS-CoV-2 (PCR) Not detected Influenza Type A (PCR) Not detected Influenza Type B (PCR) Not detected RSV (PCR) Not detected Rhinovirus (PCR) Not detected 12/31/24 12/31/24 14:36 12:35 WBC 7.7 RBC 5.10 Hgb 15.4 Hct 44.9 MCV 88.0 MCH 30.2 MCHC 34.3 RDW 12.7 Plt Count 200 MPV 9.9 Neut % (Auto) 72.1 Lymph % (Auto) 20.8 [place] % (Auto) 6.1 Eos % (Auto) 0.3 Baso % (Auto) 0.4 Neut # (Auto) 5.5 Lymph # (Auto) 1.6 [place] # (Auto) 0.5 Eos # (Auto) 0.0 Baso # (Auto) 0.0 D-Dimer 0.71 H VBG pH 7.35 VBG pCO2 45.0 VBG pO2 40.2 H VBG HCO3 24.4 VBG Total CO2 25.8 VBG O2 Saturation 72.6 H VBG Base Excess -1.2 VBG Lactic Acid 1.6 Sodium 133 L Potassium 3.9 Chloride 97 L Carbon Dioxide 29 Anion Gap 10.9 BUN 14 Creatinine 0.80 Estimated Creat Clear 65 Estimated GFR 74 Est GFR ( Amer) 89 Glucose 145 H Calcium 8.9 Magnesium 2.0 Total Bilirubin 0.7 AST 40 H ALT 22 Alkaline Phosphatase 78 Troponin I < 0.01 Total Protein 7.7 Albumin 4.7 Globulin 3.0 Albumin/Globulin Ratio 1.6 SARS-CoV-2 (PCR) Influenza Type A (PCR) Influenza Type B (PCR) RSV (PCR) Rhinovirus (PCR) DS: Diagnosis Discharge Diagnosis (1) Acute hypoxic respiratory failure: Status: Acute Code(s): J96.01 - Acute respiratory failure with hypoxia (2) COPD exacerbation: Status: Acute Code(s): J44.1 - Chronic obstructive pulmonary disease with (acute) exacerbation (3) Elevated d-dimer: Status: Acute Code(s): R79.89 - Other specified abnormal findings of blood chemistry Meds Home Medications and Allergies Home Medications ?Medication ?Instructions ?Recorded ?Confirmed ?Type albuterol sulfate 90 mcg/actuation 1 inh inhalation QID PRN shortness 01/29/22 12/31/24 Rx aerosol inhaler of breath or wheezing 90 days #8.5 grams meloxicam 15 mg tablet 15 mg PO Q6HP PRN Mild Pain (Scale 12/31/24 01/01/25 History Score 1-4) fluticasone fur. 100 mcg-umeclid 1 inh inhalation DAILY 30 days #0 01/01/25 Rx 62.5 mcg-vilant 25 mcg ea inhalat.powder (Trelegy Ellipta) ipratropium 0.5 mg-albuterol 3 mg 3 ml inhalation Q4HP PRN shortness 01/01/25 Rx (2.5 mg base)/3 mL nebulization of breath or wheezing 30 days #90 soln mL levofloxacin 500 mg tablet 500 mg PO 1100 3 days #3 tabs 01/01/25 Rx mupirocin 2 % topical ointment 1 applic topical TID 01/01/25 01/01/25 History nicotine 21 mg/24 hr daily 21 mg transdermal DAILY 30 days 01/01/25 Rx transdermal patch #28 ea prednisone 20 mg tablet 40 mg (2 x 20 mg) PO DAILY 3 days 01/01/25 Rx #6 tabs New Prescriptions to Start Prescriptions: ipratropium-albuterol Jeremias Guillermo levofloxacin Jeremias Guillermo nicotine Jeremias Guillermo prednisone Jeremias Guillermo Allergies Allergy/AdvReac Type Severity Reaction Status Date / Time No Known Allergies Allergy Verified 05/12/24 08:29 Discharge Plan Disposition Patient Disposition: Home, Self-Care Condition: Fair Follow up Plan Follow up with: Scott Reinoso MD [Primary Care Provider] - 01/08/25 11:00 am Prescriptions/Medication Reconciliation: New ipratropium-albuterol 0.5 mg-3 mg(2.5 mg base)/3 mL Solution For Nebulization 3 ml inhalation Q4HP PRN (Reason: shortness of breath or wheezing) 30 Days Qty: 90 3RF nicotine 21 mg/24 hr Patch 24 Hour 21 mg transdermal DAILY 30 Days Qty: 28 0RF levofloxacin 500 mg Tablet 500 mg PO 1100 3 Days Qty: 3 0RF Trelegy Ellipta 100-62.5-25 mcg Blister With Device 1 inh inhalation DAILY 30 Days Qty: 0 0RF prednisone 20 mg Tablet 40 mg PO DAILY 3 Days Qty: 6 0RF Continued albuterol sulfate 90 mcg/actuation HFA aerosol inhaler 1 inh INHALATION QID PRN (Reason: shortness of breath or wheezing) 90 Days Qty: 8.5 3RF meloxicam 15 mg tablet 15 mg PO Q6HP PRN (Reason: Mild Pain (Scale Score 1-4)) mupirocin 2 % ointment 1 applic TOPICAL TID Discontinued Anoro Ellipta 62.5-25 mcg/actuation blister with device 1 inh INHALATION DAILY 90 Days Qty: 90 3RF Other Ambulatory Orders: Home Medical Equipment (Routine) Location: None Selected Ordered By: Jeremias Guillermo Problem Reconciliation Problems Reviewed?: Yes Patient Discharge Instructions Patient Instructions: Chronic Obstructive Pulmonary Disease, Respiratory Failure, COPD: When to Call for Help, Physical Activity for People with COPD, Stop Light COPD Print Language: Upper Sorbian Providers Primary Care Provider: Scott Reinoso Admit Provider: Jeremias Guillermo Attending Provider: Jeremias Guillermo
== END 2025-01-01 14:32 | disposition home or self-care (01) ==
LOC: ER 12:46 → 2ND 15:32
PROVIDERS: Nurse Practitioner; Nurse Practitioner Family; Admitting Provider Student in an Organized Health Care Education/Training Program; Emergency Provider Emergency Medicine; PCP Family Medicine; Visit Provider Student in an Organized Health Care Education/Training Program
DX: J44.1 Chronic obstructive pulmonary disease with (acute) exacerbation (principal); J96.01 Acute respiratory failure with hypoxia; F17.210 Nicotine dependence, cigarettes, uncomplicated; R79.1 Abnormal coagulation profile; I10 Essential (primary) hypertension; R91.8 Other nonspecific abnormal finding of lung field; Z83.6 Family history of other diseases of the respiratory system; Z82.49 Family history of ischemic heart disease and other diseases of the circulatory system; Z79.899 Other long term (current) drug therapy
CPT/HCPCS: 36415; 71045; 80053; 82803; 83735; 84484; 85025; 85378; 87631; 93005; 94640; 94760; 94761; 99285; G0378; J1650; J2919; J3475; J7120; J7620

== ENCOUNTER 2025-01-08 07:52 | Outpatient (CLI) | payer BC, SELFPAY ==
[2025-01-08 16:35] LABS: Basophils # 0.1 K/mm3 (0-0.2); Basophils % 0.6 % (0.1-2.0); Eosinophils # 0.1 Kmm3 (0.0-0.4); Eosinophils % 1.2 % (0.1-12.0); Hematocrit 40.1 % (37.0-47.0); Hemoglobin 13.2 g/dL (12.2-16.2); Immature Granulocytes # 0.08 10^3uL; Immature Granulocytes % 0.7 %; Lymphocytes # 2.8 K/mm3 (0.7-4.5); Lymphocytes % 24.4 % (10-50); Mean Corpuscular HGB Conc 32.9 g/dL (31.8-35.4); Mean Corpuscular Hemoglobin 30.1 pg (27.0-31.2); Mean Corpuscular Volume 91.6 fl (81-99); Mean Platelet Volume 9.4 fl (7.4-10.4); Monocytes # 0.7 K/mm3 (0.1-1.0); Monocytes % 5.7 % (1.7-9.3); Neutrophils # 7.7 K/mm3 (1.8-7.8); Neutrophils % 67.4 % (37.0-80.0); Nucleated Red Blood Cells # 0 10^3/uL; Nucleated Red Blood Cells % 0 %; Platelet Count 486 K/mm3 (142-424); Red Blood Count 4.38 M/mm3 (4.20-5.40); Red Cell Distribution Width 12.8 % (11.5-17.5); Red Cell Distribution Width-SD 42.7 fL; White Blood Count 11.4 K/mm3 (4.8-10.8)
[2025-01-08 16:50] LABS: Chloride 104 mmol/L (98-107); Sodium 139 mmol/L (136-145)
[2025-01-08 16:51] LABS: Potassium 4.4 mmoL/L (3.5-5.1)
[2025-01-08 16:53] LABS: Alanine Aminotransferase 20 U/L (12-78); Albumin/Globulin Ratio 1.8 (1.1-1.8); Alkaline Phosphatase 99 U/L (38-126); Anion Gap 9.4 mEq/L (5-15); Aspartate Amino Transferase 24 U/L (14-36); Bilirubin,Total 0.3 mg/dl (0.2-1.3); Blood Urea Nitrogen 9 mg/dl (7-17); Calcium 8.8 mg/dl (8.4-10.2); Carbon Dioxide 30 mmol/L (22.0-30.0); Estimated Glomerular Filt Rate 103 ml/min (>60); GFR (African American) 125 ML/MIN (>60); Globulin 2.2 g/dL (1.3-3.2); Glucose 90 mg/dl (74-100); Total Protein,Serum 6.2 g/dl (6.3-8.2)
[2025-01-08 17:20] LABS: Hemoglobin A1C 5.6 % (4.0-6.0)
[2025-01-08 17:55] LABS: HIV Combo NEGATIVE (Negative)
[2025-01-08 18:22] LABS: Hepatitis C Ab Qual. W/ RFX NEGATIVE (Negative)
[2025-01-09 05:35] LABS: Hepatitis B Surface Antigen Negative (Negative)
== END 2025-01-08 23:59 | disposition home or self-care (01) ==
LOC: LAB.DROPOF 01-11 07:52
PROVIDERS: PCP Nurse Practitioner Family; Visit Provider Nurse Practitioner Family
DX: J44.1 Chronic obstructive pulmonary disease with (acute) exacerbation (principal); Z11.59 Encounter for screening for other viral diseases
CPT/HCPCS: 80053; 83036; 85025; 86803; 87340; 87389

== ENCOUNTER 2025-04-01 15:07 | Outpatient (CLI) | payer BC, SELFPAY ==
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
--- NOTE | 2025-04-01 15:07 | CT_ITS ---
FINAL REPORT TECHNIQUE: Thin section axial images were obtained from the lung apices to the upper abdomen by computed tomography. Reformatted images were obtained and reviewed. This study was performed with techniques to keep radiation doses al low as reasonably achievable (ALARA). Individualized dose reduction techniques using automated exposure control or adjustment of mA and/or kV according to the patient's size were employed. CLINICAL HISTORY: lung cancer screening CURRENT SMOKER / 1PPD/ 20 YRS COMPARISON: 03/27/2024 FINDINGS: CHEST CT LOW DOSE 59-year-old female, current smoker, 93-ozby-bzqo history. CTDI vol (mGy): 2.7 DLP (mGy-cm): 95.1 There is streak artifact secondary to cervical fusion hardware. There is no axillary adenopathy. There is no mediastinal or hilar mass or adenopathy. The heart is normal in size. There is no pericardial or pleural effusion. There is moderate emphysema and mild pulmonary scarring. Lung window images demonstrate a 3 mm nodule in the left lower lobe, also present on the prior CT examination of 03/27/2024, best seen on image #287 of series 5. Limited images of the upper abdomen are unremarkable. IMPRESSION: Lung-RADS category 2. Recommend 12 month follow up low dose chest CT. Reviewed, Interpreted and Dictated by Jose Francis MD Transcribed by Emma Cristina Authenticated and [facility]
--- OUTSIDE RECORDS SUMMARY | 2025-04-01 15:09 | XMS_ITS | Clinical Summary ---
Author Organization Healthcare Address [address] [place] [address] Care Team Providers Care Residential Program Worker Name Role Phone Roxanne Young APRN Primary Care Provider [phone] Allergies No known active allergies Medications topiramate (Topamax) 25 MG tablet Take 1 tablet (25 mg) by mouth every night. 90 tablet 03/07/2023 Active buPROPion XL (Wellbutrin XL) 150 MG 24 hr tablet Take 1 tablet (150 mg) by mouth 1 (one) time each day. Do not crush, chew, or split. 90 tablet 03/07/2023 Active cyanocobalamin (Vitamin B-12) 1000 MCG/ML injection Patient to inject IM/SQ 1ML daily for 7 days then 1ML weekly for 4 weeks then once monthly. 30 mL 03/08/2023 Active Family History Medical History Relation Name Comments COPD Father Heart disease Father Neuropathy Mother Cancer Other Conversions - Other Other Known he alth problems: none Meningitis Sister Relation Name Status Comments Father Mother Other Sister Social History Tobacco Use Types Packs/Day Years Used Date Smoking Tobacco: Former Cigarettes 1 40 Alcohol Use Standard Drinks/Week Comments Not Currently 0 (1 standard drink = 0.6 oz pur e alcohol) Comments Unknown Sex and Gender Information Value Date Recorded Sex Assigned at Not on file Legal Sex Female 8:42 PM EDT Gender Identity Not on file Sexual Orientation Not on file Last Filed Vital Signs Vital Sign Reading Time Taken Comments Blood Pressure 146/83 03/07/2023 1:10 PM EDT Pulse 55 03/07/2023 1:10 PM EDT Temperature 36.3 C (97.3 F) 10/31/2020 11:17 AM EDT Respiratory Rate 16 10/31/2020 11:17 AM EDT Oxygen Saturation - - Inhaled Oxygen Concentration - - Weight 65.9 kg (145 lb 4.5 oz) 03/07/2023 1:10 P M EDT Height 157.5 cm (5' 2 ) 03/07/2023 1:10 PM EDT Body Mass Index 26.57 03/07/2023 1:10 PM EDT Plan of Treatment Health Maintenance Due Date Last Done Comments [facility]-Depression Screening 1965 [facility]-HIV Screening 1965 [facility]-Hepatitis C Screening 1967 [facility]-/Child/Adol SDOH Screenings 1965 [facility]- SDOH Screenings 1985 [facility]-Adult SDOH Screenings 1985 [facility]-Pap Smear 01/01/1997 01/01/1994 [facility]-Cervical Cancer Screening 01/01/1999 [facility]-HPV/Cotest 01/01/1999 01/01/1994 CT Colonography 2012 Colonoscopy 2012 FIT-DNA 2012 FIT 2012 FOBT 2012 Sigmoidoscopy 2012 [facility]-Colorectal Cancer Screening 2012 [facility]-Breast Cancer Screening 2017 [facility]-Pneumococcal Vaccine: 50 + Years (1 of 1 - PCV) 2017 [facility]-Zoster Vaccines (1 of 2) 2017 [id number] Vaccine ( season) 2024 06/09/2021, 11/18/2020, 10/18/2020 [facility]-Influenza Vaccine (#1) 2025 [facility]-DTaP,Tdap,and Td Vaccine s (3 - Td or Tdap) 02/04/2027 02/04/2017, 03/25/2007 [facility]-Hepatitis B Vaccines Completed 009, 06/01/2008, 03/25/2007 [facility]-Hepatitis A Vaccines Aged Out 019, 06/01/2008, 03/25/2007 No longer eligible based on patient's age to complete this topic [facility]-Obesity Intervention Completed 03/07/2023 HPV Vaccines Aged Out No longer eligi ble based on patient's age to complete this topic [facility]-HIB Vaccines Aged Out No longer e ligible based on patient's age to complete this topic [facility]-IPV Vaccines Aged Out No longer e ligible based on patient's age to complete this topic [facility]-Rotavirus Vaccines Aged Out No lo nger eligible based on patient's age to complete this topic Procedures Procedure Name Priority Date/Time Associated Diagnosis Comments CYTO DATA CONVERSION Routine 01/01/1994 12:00 AM EDT from Last 3 Months or Most Recently Relevant to Health Maintenance Results * (ABNORMAL) Cytology (01/01/1994 12:00 AM EDT) 01/01/1994 01/01/1994 Narrative SUNQUEST - 01/04/1994 12:00 AM EDT [facility] MR #: [id number] [facility] [address] [place], [place] [address] 1965 (Age: 28) FU Collect Date: 01/01/1994 00:00 Receipt Date: 01/01/1994 00:00 Page 1 DEPARTMENT OF PATHOLOGY AND LABORATORY MEDICINE CYTOPATHOLOGY REPORT Email: [email or web address] [phone] * Converted Case * This report may not match the original report format ATTENDING MD/Practitioner: Parish Butts MD 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 SATISFACTORY FOR INTERPRETATION. Electronically Signed Out YEE Andrews (ASCP) Darya Braden MD Cervical cytology is a screening test primarily for squamous cancers and precursors and has associated false negative and positive results. New technologies such as liquid based sampling may decrease but will not eliminate all false negative results. Regular screening and follow-up of unexplained clinical signs and symptoms are recommended to minimize false negative results. Please see the ASCCP website (www.asccp.org) for followup recommendations. If HPV testing was requested, correlation with the results is suggested (please call Microbiology at [phone] for results). CLINICAL INFORMATION: Menstrual History: {Not Provided} Date of Last Menstrual Period: {Not Provided} colpo done SPECIMEN DESCRIPTION: A: PAP SMEAR, NOS, PAP ICD: F: {Not Entered} SNOMED CODES: 1; [id number] In cases where a pathologist has signed out the report, the service has been rendered in part by a resident. The signing pathologist has performed and is responsible for the reported pathologic evaluation. Blanca Butts MD LAB PATHOLOGY ORDERABLES Tali omrales Result SUNQUEST from Last 3 Months or Most Recently Relevant to Health Maintenance Insurance ANTHEM Care Teams Residential Program Worker Relationship Specialty Start Date End Date Roxanne Young APRN PCP - General 12/23/20
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
== END 2025-04-01 23:59 | disposition home or self-care (01) ==
LOC: RAD 15:07
PROVIDERS: PCP Family Medicine; Visit Provider Internal Medicine Pulmonary Disease
DX: Z12.2 Encounter for screening for malignant neoplasm of respiratory organs (principal); F17.210 Nicotine dependence, cigarettes, uncomplicated; R91.8 Other nonspecific abnormal finding of lung field
CPT/HCPCS: 71271

== ENCOUNTER 2025-06-22 10:06 | Outpatient (CLI) | payer BC, SELFPAY ==
[2025-06-22 17:08] LABS: Hematocrit 41.6 % (37.0-47.0); Hemoglobin 13.1 g/dL (12.2-16.2); Immature Granulocytes % 0.2 %; Mean Corpuscular HGB Conc 31.5 g/dL (31.8-35.4); Mean Corpuscular Hemoglobin 28.8 pg (27.0-31.2); Mean Corpuscular Volume 91.4 fl (81-99); Nucleated Red Blood Cells % 0 %; Platelet Count 335 K/mm3 (142-424); Red Blood Count 4.55 M/mm3 (4.20-5.40); Red Cell Distribution Width-SD 42.4 fL; White Blood Count 5.6 K/mm3 (4.8-10.8)
[2025-06-22 17:37] LABS: Alanine Aminotransferase 34 U/L (12-78); Albumin Level 4.6 g/dl (3.5-5.0); Albumin/Globulin Ratio 1.5 (1.1-1.8); Alkaline Phosphatase 112 U/L (38-126); Anion Gap 13.4 mEq/L (5-15); Aspartate Amino Transferase 32 U/L (14-36); Bilirubin,Total 0.7 mg/dl (0.2-1.3); Blood Urea Nitrogen 19 mg/dl (7-17); Calcium 9.6 mg/dl (8.4-10.2); Carbon Dioxide 29 mmol/L (22.0-30.0); Chloride 99 mmol/L (98-107); Cholesterol 226 mg/dl (140-200); Creatinine,Serum 0.70 mg/dl (0.52-1.04); Estimated Glomerular Filt Rate 86 ml/min (>60); GFR (African American) 104 ML/MIN (>60); Globulin 3.0 g/dL (1.3-3.2); Glucose 88 mg/dl (74-100); HDL Cholesterol 65 mg/dl (40-60); Potassium 4.4 mmoL/L (3.5-5.1); Sodium 137 mmol/L (136-145); Total Protein,Serum 7.6 g/dl (6.3-8.2); Triglycerides 127 mg/dl (30-150)
[2025-06-22 17:50] LABS: Hemoglobin A1C 5.8 % (4.0-6.0)
[2025-06-22 17:53] LABS: 25-OH Vitamin D, Total 18.6 ng/mL (30-100)
[2025-06-22 18:08] LABS: Thyroid Stimulating Hormone 1.63 uIU/mL (0.465-4.68)
[2025-06-22 18:27] LABS: Vitamin B12 439 pg/mL (239-931)
--- OUTSIDE RECORDS SUMMARY | 2025-06-23 13:44 | XMS_ITS | Data Portability ---
Author Organization [facility] [place] CLOSED Address [address] [facility] [address] [place] [address] Assessment No assessment recorded. Plan of Treatment Reminders Order Date Submit Date Provider Last Modified By Organization Details Last Modified Time Details Appointments None recorde d. Lab None recorde d. Referral None recorde d. Procedures None recorde d. Surgeries None recorde d. Imaging None recorde d. Medication Orders mupiroc in 2 % topical ointmen t 2024 025 [email or web address] [facility], [facility] [place], [address], 5 12:16:32 doxycyc line hyclate 100 mg capsule [email or web address] [facility], [facility] [place], [address], 12:16:35 Patient TargetsNo targets recorded. Patient InstructionsNo instructions recorded. Reason for Referral None Reported. Procedures Surgical History Date Name Laterality Status Provider Name and Address Organization Details Recorded Time 12/05/19 25 DAK - Intralesional Injection completed Jacquelyn Tijerina [facility] 12/04/2024 15:15:17 Imaging Results None recorded. Procedure [...] to the AA TID x 10 days 05/20/2 025 active Not Available Not Available Not Avai lable meloxicam active Not Available Not Emily ilable Not Available Vitals None Recorded Social History Question Answer Notes LastModified by Organizat ion Details LastModified Time Tobacco Smoking Status Current Every Day Smoker Jacquelyn Tijerina [facility] 12/04/2024 14:44:27 What Is Your Level [...] Diagnosis SNOMED-CT Code Diagnosis ICD10 Code Diagnosis IMO Codes Diagnosis Note [id number] MORTEZA BURNS PA-C [address] [address] 12/04/2024 14:26:30 12/04/2024 15:49:51 Epidermoid cyst of skin 479660950 L72.0 L53.0 34791 Cysts are dilated follicles with keratinous material [...] use if or nursing.Re c taking probiotic. [id number] SHAMIR MARTINES R, PUMP SERVICE SUPERVISOR [place] [address] [place] [address] 12/29/2024 11:17:05 12/29/2024 12:32:10 Epidermoid cyst of skin 365280996 L72.0 84154 Patient reports the cyst only continued to [...] Alanis Member ID Guarantor Name 12/26/2024 1 [place] [id number] Nay Duenas [id number] Nay Duenas Notes Date Note Type Note Provider Name and Address Organization Details Recorded Time 12/04/2024 text/html Specific spot to check Location:neckGe neral duration:1 yearPredominant symptom:painfulPrior treatment(s):noneHist ory of evolution:it is growing MORETZA BURNS PA-C [address] [place], [address], [facility] 12/05/2024 17:48:25 12/29/2024 text/html ROS as noted in the HPI Cyst Location: Neck Duration: 1mo f/u Previous tx: Kenalog 10 + doxy Reports: cyst popped, matting press tender SHAMIR DICKEY, PUMP SERVICE SUPERVISOR [address] [place], [address], [facility] 12/30/2024 17:04:15 OBGyn Episode No OBEpisode recorded.
--- OUTSIDE RECORDS SUMMARY | 2025-06-23 13:44 | XMS_ITS | Data Portability ---
Author Organization [facility] [employer] [facility] Address [address] [place] [address] Assessment Encounter Date Assessment Date Assessment LastModified by Organization Details LastModified Time 02/21/2023 02/21/2023 Patient with exam that is consistent with either sinusitis or streptococcal pharyngitis. We will treat as noted with Augmentin. Advised to take hoxn-fhu-kuaghwn Tylenol or Motrin for pain or fever. Instructed to increase fluids. Educated to return if symptoms do not resolve after treatment is completed. Instructed to complete full course of antibiotics. [email or web address] Not available 02/21/2023 14:18:55 Plan of Treatment Reminders Order Date Submit Date Provider Last Modified By Organization Details Last Modified Time Details Appointments None recorded. Lab None recorded. Referral None recorded. Procedures None recorded. Surgeries None recorded. Imaging None recorded. Medication Orders prednisone 20 mg tablet 2022 023 BRISSA [facility], [address] [place] [address], [address], 3 14:24:00 cephalexin 500 mg capsule 2022 023 [email or web address] [facility], [address] [place] [address], [address], 3 14:26:41 amoxicillin 875 mg-potassiu m clavulanate 125 mg tablet 2022 023 [email or web address] 1 [facility], [address] [place] [address] [place], [address], 3 13:31:29 Patient TargetsNo targets recorded. Patient InstructionsNo instructions recorded. Reason for Referral None Reported. Results Created Date Observation Date Name Description Value Unit Range Abnormal Flag Note LastModifiedBy Organization Detail LastModifiedTime 03/22/20 23 03/22/2023 LDCT, chest , for lung cance r cosmee rena No observ ation record ed. [address], [place], [address], 04/12/2023 17:41:50 03/29/2003/29/2023 MAMMO , scree rena, digit al, bilat eral No observ ation record ed. [address] (Radiology) [address] [place] [address] , [place], [address], 04/12/2023 17:41:50 Result Notes None recorded. Problems Name Problem SNOMED Code Status Onset Date Resolution Date Notes Provider Name and Address Organization Details Recorded Time Pain in limb 25044317 Active 2018 Not Available [facility] 2 22:16:24 Neck pain 24769460 Completed 201904/05/2020 Not Available [facility] 2 22:16:24 Screenin g for malignan t neoplasm of colon Active 2019 Not Available [facility] 2 22:16:27 Finding of body mass index 528939662 Active 2019 Problem Code: Z68.1; Problem Code Type: ICD-10; Not Available [facility] 2 22:16:27 Muscle pain 44254387 Completed 201904/05/2020 Problem Code: M79.10; Problem Code Type: ICD-10; Not Available [facility] 2 22:16:24 Vitamin D deficien cy 74932274 Active 2019 Problem Code: E55.9; Problem Code Type: ICD-10; Not Available [facility] 2 22:16:24 Pain of joint 84338692 Completed 201901/28/2021 Problem Code: M25.50; Problem Code Type: ICD-10; Not Available [facility] 22:16:24 Chronic fatigue syndrome 50988635 Completed 201901/28/2021 Problem Code: R53.82; Problem Code Type: ICD-10; Not Available [facility] 2 22:16:26 General examinat ion of patient Active 2019 Not Available [facility] 2 22:16:26 Choleste maryellen dalalin g Active 2019 Not Available [facility] 2 22:16:26 Vitamin B deficien cy 01472338 Active 2020 Problem Code: E53.9; Problem Code Type: ICD-10; Not Available [facility] 22:16:24 Nicotine dependen ce 32682486 Active 2020 Problem Code: F17.200; Problem Code Type: ICD-10; Not Available [facility] 22:16:24 Dysuria 32395646 Completed 202012/22/2020 Problem Code: R30.0; Problem Code Type: ICD-10; Not Available [facility] 22:16:26 Chronic fatigue syndrome 46082031 Completed 202001/28/2021 Problem Code: R53.82; Problem Code Type: ICD-10; Not Available [facility] 2 22:16:26 Body mass index 20-24 - normal 392892110 Active 2020 Not Available [facility] 2 22:16:27 Dyspnea 555889269 Completed 202007/11/2021 Problem Code: R06.00; Problem Code Type: ICD-10; Not Available [facility] 22:16:28 Choleste rol screenin g Completed 202012/22/2020 Not Available [facility] 2 22:16:29 Dyspnea 346370322 Active 2020 Problem Code: R06.02; Problem Code Type: ICD-10; Not Available [facility] 2 22:16:25 Chronic obstruct viola pulmonar y disease 40298348 Active 2020 Problem Code: J44.9; Problem Code Type: ICD-10; Not Available [facility] 2 22:16:27 Urinary tract infectio us disease 05797287 Active 2020 Problem Code: N39.0; Problem Code Type: ICD-10; Not Available [facility] 2 22:16:25 Dysuria 41840014 Active 2020 Problem Code: R30.0; Problem Code Type: ICD-10; Not Available [facility] 2 22:16:25 Body mass index 20-24 - normal 972519944 Completed 202001/28/2021 Not Available [facility] 2 22:16:29 Urinary tract infectio us disease 18107423 Completed 202005/04/2021 Problem Code: N39.0; Problem Code Type: ICD-10; Not Available [facility] 2 22:16:25 Dysuria 62810175 Completed 202005/04/2021 Problem Code: R30.0; Problem Code Type: ICD-10; Not Available [facility] 2 22:16:29 Dysuria 11377994 Completed 202007/11/2021 Problem Code: R30.0; Problem Code Type: ICD-10; Not Available [facility] 2 22:16:26 Urinary tract infectio us disease 71576077 Completed 202007/11/2021 Problem Code: N39.0; Problem Code Type: ICD-10; Not Available [facility] 2 22:16:28 Pre-surg maria del carmen evaluati on Active 2020 Not Available [facility] 2 22:16:26 Acute sinusiti s 09265285 Active 2022 ALEX BOSTON-[address], [address] , [facility] [email or web address] 3 14:09:08 Problem Notes None recorded. Procedures Surgical History Date Name Laterality Status Provider Name and Address Organization Details Recorded Time 9 ligation of bilateral fallopian tubes completed Not Available [facility] 04/17/2022 22:56:26 complete repair of rotator cuff completed THU [facility] [employer], [facility]. 02/21/2023 13:57:15 repair of long head of biceps brachii completed [facility] [employer] [facility] [employer]. 02/21/2023 13:57:31 Imaging Results None recorded. Procedure Notes None recorded. Medical Equipment None Reported. Allergies No known drug allergies Medications Name Sig Start Date Stop Date Status Note LastModified by Organization Details LastModified Time azithromy cecelia 250 mg tablet take 2 tablets (500 mg) by oral route once daily for 1 day then 1 tablet (250 mg) by oral route once daily for 4 days 02/21 completed Not Available Not Available Not Available ibuprofen 800 mg tablet take 1 tablet (800 mg) by oral route 3 times per day with food 02/01 completed Not Available Not Available Not Available naltrexon e 50 mg tablet TAKE 1/2 (ONE-HERBERT F) TABLET BY MOUTH ONCE DAILY 04/01 completed Not Available Not Available Not Available phenazopy ridine 200 mg tablet TAKE 1 TABLET BY MOUTH EVERY 8 HOURS FOR 3 DAYS 02/21 completed Not Available Not Available Not Available metaxalon e 400 mg tablet Take 1-2 tablets PO every 8 hours prn muscle pain 12/31 completed Not Available Not Available Not Available prednison e 20 mg tablet TAKE ONE TABLET BY MOUTH THREE TIMES DAILY FOR THREE DAYS active Not Available Not Available No t Available topiramat e 25 mg tablet TAKE 1 TABLET BY MOUTH ONCE DAILY AT NIGHT active Not Available Not Available No t Available levofloxa cecelia 250 mg tablet TAKE 1 TABLET BY MOUTH ONCE DAILY FOR 3 DAYS 02/21 completed Not Available Not Available Not Available sulfameth oxazole 800 mg-trimet hoprim 160 mg tablet take 1 tablet by oral route every 12 hours for 10 days 07/11 completed Not Available Not Available Not Available amoxicill in 875 mg tablet TAKE 1 TABLET BY MOUTH EVERY 12 HOURS 2022 active For Dental infectio n Not Available Not Available Not Available cephalexi n 500 mg capsule TAKE ONE CAPSULE BY MOUTH EVERY 6 HOURS FOR SEVEN DAYS active Not Available Not Available No t Available cyanocoba mayuri (vit B-12) 1,000 mcg/mL injection solution INJECT 1 ML (CC) INTRAMUS CULARLY ONCE DAILY FOR 7 DAYS, THEN 1ML ONCE WEEKLY FOR 4 WEEKS, THEN ONCE MONTHLY THEREAFT ER active Not Available Not Available No t Available nitrofura ntoin macrocrys eitan 100 mg capsule take 1 capsule (100 mg) by oral route 4 times per day with food for 7days 05/04 completed Not Available Not Available Not Available ergocalci ferol (vitamin D2) 1,250 mcg (50,000 unit) capsule take on tablet 3 times week x3 months 10/28 completed Not Available Not Available Not Available albuterol sulfate HFA 90 mcg/actua tion aerosol inhaler INHALE 1 PUFF BY MOUTH 4 TIMES DAILY NEEDED FOR SHORTNES S OF BREATH AND FOR WHEEZING active Not Available Not Available No t Available amoxicill in 875 mg-potass ium clavulana te 125 mg tablet TAKE ONE TABLET BY MOUTH EVERY TWELVE HOURS FOR SEVEN DAYS 04/01 completed Not Available Not Available Not Available bupropion HCl XL 150 mg 24 hr tablet, extended release TAKE 1 TABLET BY MOUTH ONCE DAILY. DO NOT CRUSH, CHEW OR SPLIT active Not Available Not Available No t Available Vitamin D3 02/21 completed Not Available Not Available Not Available fluticaso ne furoate 100 mcg-vilan terol 25 mcg/dose inhalatio n powder inhale 1 puff by inhalati on route once daily at the same time each day 03/07 completed Not Available Not Available Not Available Anoro Ellipta 62.5 mcg-25 mcg/actua tion powder for inhalatio n INHALE 1 PUFF BY MOUTH ONCE DAILY active Not Available Not Available No t Available BinaxNOW COVID-19 Ag Self Test kit Use as Directed on the Package 02/21 completed Not Available Not Available Not Available Vitals Date Recorded Body weight Body mass index (BMI) Body height Body temperature Heart rate Oxygen saturation Oxygen saturation in Arterial blood by Pulse oximetry Systolic And Diastolic Provider Name and Address Organization Details Last Updated DateTime 3 94054.1 2 g 23.6 kg/m2 165.1 cm 97.9 [degF] 56 /min 99 % 99 % 136/83 mm[Hg] THU MORALES [employer] 3 14:01:35 Date Recorded Body height Body mass index (BMI) Body weight Heart rate Oxygen saturation Oxygen saturation in Arterial blood by Pulse oximetry Systolic And Diastolic Provider Name and Address Organization Details Last Updated DateTime 3 165.1 cm 23.9 kg/m2 51380.8 6 g 70 /min 98 % 98 % 124/86 mm[Hg] Ashley [employer] 3 13:39:33 Social History Question Answer Notes LastModified by Organizat ion Details LastModified Time Tobacco Smoking Status Former Smoker THU MORALES [employer]ika [employer] 02/21/2023 13:54:23 Do You Have An Advance Directive? No [email or web address] Information not available 02/21/2023 Is Your Home Air Conditioned? Yes [email or web address] Information not available 02/21/2023 Do You Wear A Helmet When Biking? No [email or web address] Information not available 02/21/2023 Are You Blind Or Do You Have Difficulty Seeing? No [email or web address] Information not available 02/21/2023 What Is Your Level Of Caffeine Consumption? Moderate Information not available 02/21/2023 Are You A Caregiver? No [email or web address] Information not available 02/21/2023 Have You Been To An Area Known To Be High Risk For COVID-19? No [email or web address] Information not available 02/21/2023 Are You Deaf Or Do You Have Serious Difficulty Hearing? No Information not available 02/21/2023 What Type Of Diet Are You Following? REGULAR Information not available 02/21/2023 Who Is Your Employer? [employer] [email or web address] Information not available 02/21/2023 Have There Been Any Changes To Your Family Or Social Situation? No [email or web address] Information no t available 02/21/2023 When Did You Quit Smoking? 1-5yearssincel astcigarette [email or web address] Information not available 02/21/2023 Are There Any Guns Present In Your Home? Yes [email or web address] Information not available 02/21/2023 Which Of Your Hands Is Dominant? Right [email or web address] Information not available 02/21/2023 Do You Have A Medical Power Of Slackman? No [email or web address] Information not available 02/21/2023 What Was The Date Of Your Most Recent Tobacco Screening? 02/21/2023 [email or web address] Information not available 02/21/2023 What Is Your Current Pack Years? 30ormorepackye ars [email or web address] Information not available 02/21/2023 Do You Have Any Pets? Yes [email or web address] Information not available 02/21/2023 What Is Your Relationship Status? [email or web address] Information not available 02/21/2023 Do You Use Your Seat Belt Or Car Seat Routinely? Yes [email or web address] Information not available 02/21/2023 Do You Have Smoke And Carbon Monoxide Detectors In Your Home? Yes Information not available 02/21/2023 Are You Passively Exposed To Smoke? No [email or web address] Information no t available 02/21/2023 Are There Any Smokers In Your House? No [email or web address] Information not available 02/21/2023 Do You Use Sunscreen Routinely? Yes [email or web address] Information not available 02/21/2023 Has Tobacco Cessation Counseling Been Provided? No [email or web address] Information not available 02/21/2023 How Many Years Have You Smoked Tobacco? 39 [email or web address] Information not available 02/21/2023 Have You Recently Traveled Abroad? No Information not available 02/21/2023 Do You Have Difficulty Walking Or Climbing Stairs? No [email or web address] Information not available 02/21/2023 Are You Currently In School? No [email or web address] Information not available 02/21/2023 Do You Have Any Dietary Restrictions? No [email or web address] Information not available 02/21/2023 Sex: Female Functional Status Question Answer Note LastModified by Organizat ion Details LastModified Time Do you use any illicit or recreational drugs? No [email or web address] Information not available 02/21/2023 Do you or have you ever used any other forms of tobacco or nicotine? No [email or web address] Information not available 02/21/2023 What is your level of alcohol consumption? None [email or web address] Information not available 02/21/2023 Are you currently employed? Yes Information not available 02/21/2023 Do you have transportation difficulties? No [email or web address] Information not available 02/21/2023 Are you able to walk independently without assistance or assistive devices? YESWOREST [email or web address] Information not available 02/21/2023 Do you have difficulty doing errands alone? No [email or web address] Information not available 02/21/2023 Are you able to care for yourself independently? Yes [email or web address] Information not available 02/21/2023 Do you have difficulty dressing, bathing, grooming, or toileting? No [email or web address] Information not available 02/21/2023 What is your exercise level? None [email or web address] Information not available 02/21/2023 Mental Status Question Answer Note LastModified by Organization D etails LastModified Time Do you have difficulty concentrating, remembering or making decisions? No [email or web address] Information no t available 02/21/2023 Family History Relationship Description Onset Age of this Age Resolved Age Notes LastModified by Organization Details LastModified Time Father Chronic obstructive pulmonary disease [email or web address] Not available 13:51:54 Father Myocardial infarction [email or web address] Not available 13:52:12 Medical History Condition Response COPD Y Gynecological HistoryNo gynecological history recorded. Obstetrics History GPAL:G 0 P 0 0 0 0 Immunizations Vaccine Type Date Status Note Provider Nam e and Address Organization Details Recorded Time COVID-19, mRNA, LNP-S, PF, 100 mcg/0.5mL dose or 50 mcg/0.25mL dose 10/18/2020 completed Not Available [facility] 2 23:41:01 COVID-19, mRNA, LNP-S, PF, 100 mcg/0.5mL dose or 50 mcg/0.25mL dose 11/18/2020 completed Not Available [facility] 2 23:41:01 COVID-19, mRNA, LNP-S, PF, 100 mcg/0.5mL dose or 50 mcg/0.25mL dose 06/09/2021 completed Not Available [facility] 2 23:41:01 Past Encounters Encounter ID Performer Location Encounter Start Date Encounter Closed Date Diagnosis/Indication Diagnosis SNOMED-CT Code Diagnosis ICD10 Code Diagnosis IMO Codes Diagnosis Note [id number] JOHANNA SANTANA [address] [address] 02/21/2023 13:31:52 02/21/2023 14:58:33 Acute sinusitis 55662445 J01.90 [id number] Roxanne Young APRN [address] [address] 04/01/2023 13:27:14 04/01/2023 15:48:28 Impetigo bullosa 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 L01.03 Pruritic rash 72906314 L 28.2 Body mass index 20-24 - normal 624107281 Z68.23 Health Concerns Section Related Observation LastModified by Organization Detai ls LastModified Time None Recorded Concern Status LastModified by Organization Details LastModified Time None Recorded Advance Directives Directive N: Payers Insurance Date Sequence Insurance Name Policy Number Policy Alanis Covered Member ID Alanis Member ID Guarantor Name 02/21/2023 1 *SELF PAY* Carolynn Duenas 04/01/2023 1 [place] [id number] 3 Nay Duenas [id number] Nay Duenas Notes Date Note Type Note Provider Name and Address Organization Details Recorded Time 02/21/2023 text/html ROS as noted in the HPI Sore throat, cough, congestion starting Saturday. Home covid test negative. Cough with small production. No N/V/D. Quit smoking 2 weeks ago. JOHANNA SANTANA [address], [address], [facility] [employer] 02/21/2023 14:19:15 04/01/2023 text/html pt here today with c/o a worsening rash x3 days. pt states that she felt hot and shes always cold and then saturday she woke up with a rash under bilateral underarms and by today it is all over her trunk and BUE. on exam, pt bilateral underarms are basically red and trunk has red slightly raised whelps. pt states that it itchy but not bad. pt denies any new soaps, meds, lotions, detergents, pets, has not been scratched by any pets, denies swimming [place]. i am going to treat with abx and steroids. advised pt to take cool showers, benadryl for itching. advised pt to call in 2-3 days for worsening symptoms and will refer to derm. Roxanne Young, CARLOS ALBERTO [address] [facility], [place], [address], [facility] [employer] 04/01/2023 14:28:28 OBGyn Episode No OBEpisode recorded.
--- OUTSIDE RECORDS SUMMARY | 2025-06-23 13:44 | XMS_ITS | Clinical Summary ---
Author Organization Healthcare Address [address] [place] [address] Care Team Providers Care Database Marketing Manager Name Role Phone Roxanne Young APRN Primary Care Provider [phone] Allergies No known active allergies Medications topiramate [...] [facility]-HIV Screening 1965 [facility]-Hepatitis C Screening 1965 [facility]-Infant/Child/Adol SDOH Screenings 1965 [facility]- SDOH Screenings 1985 [facility]-Adult SDOH Screenings 1985 [facility]-Pap Smear 01/01/1997 01/01/1994 [facility]-Cervical Cancer Screening 01/01/1999 [facility]-HPV/Cotest 01/01/1999 01/01/1994 CT Colonography 2012 Colonoscopy 2012 FIT-DNA 2012 FIT 2012 FOBT 2012 Sigmoidoscopy 2012 [facility]-Colorectal Cancer Screening 2012 [facility]-Breast Cancer Screening 2017 [facility]-Pneumococcal Vaccine: 50 + Years (1 of 1 - PCV) 2017 [facility]-Zoster Vaccines (1 of 2) 2017 [id number] Vaccine ( season) 2025 06/09/2021, 11/18/2020, 10/18/2020 [facility]-Influenza Vaccine (#1) 2025 [...] Narrative SUNQUEST - 01/04/1994 12:00 AM EDT [facility] MR #: [id number] [facility] [place], [place] [address] 1965 (Age: 28) FU Collect Date: 01/01/1994 00:00 Receipt Date: 01/01/1994 00:00 Page 1 DEPARTMENT OF PATHOLOGY AND LABORATORY MEDICINE CYTOPATHOLOGY REPORT Email: [email or web address] * Converted Case * This report may not match the original report format ATTENDING MD/Practitioner: Parish Butts MD Service: WATERSHED TENDER Location: Reported: 01/04/1994 00:00 Collected: 01/01/1994 00:00 [...] results is suggested (please call Microbiology at [phone] for results). CLINICAL INFORMATION: Menstrual History: {Not Provided} Date of Last Menstrual Period: {Not Provided} colpo done SPECIMEN DESCRIPTION: A: PAP SMEAR, NOS, PAP ICD: F: {Not Entered} SNOMED CODES: 1; O7M007 U65904 K13353 In cases where a pathologist has signed out the report, the service has been rendered in part by a resident. The signing pathologist has performed and is responsible for the reported pathologic evaluation. Blanca Butts MD LAB PATHOLOGY ORDERABLES Tali morales Result SUNQUEST from Last 3 Months or Most Recently Relevant to Health Maintenance Insurance ANTHEM Care Teams Database Marketing Manager Relationship Specialty Start Date End Date Roxanne Young APRN PCP - General 12/23/20
== END 2025-06-22 23:59 | disposition home or self-care (01) ==
LOC: LAB.DROPOF 06-23 13:28
PROVIDERS: PCP Family Medicine; Visit Provider Nurse Practitioner Family
DX: I10 Essential (primary) hypertension (principal); R53.83 Other fatigue; Z86.39 Personal history of other endocrine, nutritional and metabolic disease; R73.09 Other abnormal glucose
CPT/HCPCS: 80053; 80061; 82306; 82607; 83036; 84443; 85025